=== PATIENT | male | born 1975 | race African-American/Black ===

== ENCOUNTER 2023-10-04 14:49 | Emergency (ER) | payer SELFPAY ==
[2023-10-04] MEDS ORDERED: ONDANSETRON 4 MG/2 ML VIAL ONE (15:12)
[2023-10-04 15:18] LABS: Absolute Basophils 0.1 K/uL (0-0.5); Absolute Eosinophils 0.1 K/uL (0-0.5); Absolute Lymphocytes (CBC) 2.3 K/uL (0.7-4.9); Absolute Monocytes 0.6 K/uL (0.1-1.3); Absolute Neutrophil 3.7 K/uL (1.8-8.0); Basophils % 0.8 % (0-1.3); Eosinophils % 1.2 % (0-4.4); Hematocrit 38.6 % (39.6-49.0); Hemoglobin 12.8 g/dL (13.6-17.9); Lymphocytes % 33.8 % (15.3-44.8); MCH 31.5 pg (27.0-35.0); MCHC 33.3 g/dL (32.0-36.0); MCV 94.6 fL (80-100); MPV 7.8 fL (7.6-11.3); Monocytes % 9.3 % (3.3-12.3); Neutrophils % 54.9 % (41.7-73.7); Nucleated Red Blood Cells % 0.1 % (0-0); Platelets 232 thou/uL (152-406); RBC Red Blood Cell Count 4.08 M/uL (4.33-5.43); Red Cell Distribution Width 14.6 % (12.1-15.2)
[2023-10-04 15:36] LABS: Albumin 2.9 g/dL (3.4-5.0); Albumin/Globulin Ratio 0.9 (1.1-1.8); Anion Gap 8.9 mEq/L (5.0-15.0); Bilirubin Total 0.3 mg/dL (0.2-1.0); Globulin 3.1 g/dL (2.3-3.5); Potassium 3.9 mEq/L (3.5-5.1)
--- NOTE | 2023-10-04 16:20 | RAD REPORT ---
EXAM DESCRIPTION: CT - Abdomen Pelvis Wo Contrast - 10/04/2023 4:00 pm CLINICAL HISTORY: Abdominal pain. ABD PAIN COMPARISON: <Comparisons> TECHNIQUE: CT imaging of the abdomen and pelvis was performed without contrast. Solid organ, bowel a nd vascular assessment is limited due to lack of IV and oral contrast. All CT scans are performed using dose optimization technique as appropriate and may include automated exposure control or mA/KV adjustment according to patient size. FINDINGS: The lower lung mccray are clear.Small hiatal hernia. The liver, spleen, pancreas, adrenal glands and kidneys are within normal limits for a limited non-co ntrast examination. No bowel obstruction, free air, free fluid or abscess. The appendix is normal. The osseous structures are within normal limits. IMPRESSION: No acute intra-abdominal or pelvic findings. A limited non-contrast examination was performed as detailed.
[2023-10-04 16:56] LABS: Specific Gravity 1.022 (1.005-1.030); Sqamous Epithelial None Seen /HPF (None Seen); Urine Bacteria None Seen /HPF (<20); Urine Bilirubin NEGATIVE (Negative); Urine Blood Negative (Negative); Urine Clarity Extremely Turbid (Clear); Urine Color Light-Yellow (Yellow); Urine Crystals Unidentified Few /HPF (None Seen); Urine Culture Reflex Order NOT NEEDED; Urine Glucose NEGATIVE (Negative); Urine Ketones NEGATIVE (Negative); Urine Micro Reflex YN NO BILL MICROSCOPIC; Urine Mucus Slight /HPF (None Seen); Urine Nitrite NEGATIVE (Negative); Urine Protein NEGATIVE (Negative); Urine RBC <5 /HPF (None Seen); Urine Urobilinogen Normal (Normal); Urine Yeast (Budding) Moderate /HPF (None Seen); Urine pH 7.5 (5.0-7.0)
--- NOTE | 2023-10-04 17:13 | EDPHYS ---
Physician Documentation [facility] Name: Annabel Casillas Age: 48 yrs Sex: Male : 1975 Arrival Date: 10/04/2023 Time: 14:49 Bed 19 Private MD: ED Physician Coy Silva HPI: 10/03 15:12 This 48 yrs old Male presents to ER via Unassigned with complaints of Bloody Stools, rt Vomiting - blood. 15:12 Patient presents to the ED with vomiting, diarrhea. Started yesterday. Patient had rt vomiting with small Pepper blood streaking in it. Patient reports a red-colored stool. Reports abdominal cramping. Denies other acute complaints at this time, symptoms are moderate in severity, no other aggravating or alleviating factors.. Historical: - Allergies: 16:10 Tylenol; me1 - PMHx: 16:10 None; me1 - PSHx: 16:10 right hand surgery; me1 - Immunization history:: Adult Immunizations up to date. - Infectious Disease History:: Denies. - Family history:: not pertinent. - Social history:: Smoking status: Patient reports the use of cigarette tobacco products, denies chronic smoking, but will smoke occasionally. ROS: 15:15 Constitutional: Negative for fever, chills, and weight loss, Cardiovascular: Negative rt for chest pain, palpitations, and edema, Respiratory: Negative for shortness of breath, cough, wheezing, and pleuritic chest pain, MS/Extremity: Negative for injury and deformity, Skin: Negative for injury, rash, and discoloration, Neuro: Negative for headache, weakness, numbness, tingling, and seizure, 15:15 Abdomen/GI: Positive for nausea and vomiting, rectal bleeding, Exam: 15:15 Constitutional: This is a well developed, well nourished patient who is awake, alert, rt and in no acute distress. Head/Face: Normocephalic, atraumatic. Chest/axilla: Normal chest wall appearance and motion. Nontender with no deformity. No lesions are appreciated. Cardiovascular: Regular rate and rhythm with a normal S1 and S2. No gallops, murmurs, or rubs. Normal PMI, no JVD. No pulse deficits. Respiratory: Lungs have equal breath sounds bilaterally, clear to auscultation and percussion. No rales, rhonchi or wheezes noted. No increased work of breathing, no retractions or nasal flaring. Abdomen/GI: Soft, non-tender, with normal bowel sounds. No distension or tympany. No guarding or rebound. No evidence of tenderness throughout. Skin: Warm, dry with normal turgor. Normal color with no rashes, no lesions, and no evidence of cellulitis. MS/ Extremity: Pulses equal, no cyanosis. Neurovascular intact. Full, normal range of motion. Neuro: Awake and alert, GCS 15, oriented to person, place, time, and situation. Cranial nerves II-XII grossly intact. Motor strength 5/5 in all extremities. Sensory grossly intact. Cerebellar exam normal. Normal gait. Vital Signs: 16:00 BP 136 / 87; Pulse 79; Resp 16; Pulse Ox 100% on R/A; me1 16:11 BP 156 / 84; Pulse 91; Resp 16; Temp 98.1; Pulse Ox 97% ; Weight 137.89 kg; Height 6 me1 ft. 7 in. ; Pain 4/10; 17:04 BP 140 / 97; Pulse 80; Resp 16; Pulse Ox 99% ; me1 16:11 Body Mass Index 34.25 (137.89 kg, 200.66 cm) me1 16:11 Pain Scale: Adult me1 MDM: 14:56 Patient medically screened. rt 20:05 Differential diagnosis: Colitis, diverticulitis, hemorrhoidal bleed. Data reviewed: rt vital signs, nurses notes, lab test result(s), radiologic studies. Consideration of Admission/Observation Escalation of care including admission/observation considered. Stable H\T\H, stable vital signs, no indications for admission at this time, patient is desirous of discharge. Request COVID swab prior to leaving. Will treat empirically for colitis despite lack of CT findings. Stable for outpatient care, to follow-up with GI, return precautions discussed.. I considered the following discharge prescriptions or medication management in the emergency department Medications were administered in the Emergency Department. See MAR. Independent interpretation of the following test(s) in the Emergency Department CT Scan: My interpretation is No bowel obstructions, interpretation of CT scan images. Counseling: I had a detailed discussion with the patient and/or guardian regarding the historical points, exam findings, and any diagnostic results supporting the discharge/admit diagnosis, lab results, radiology results, the need for outpatient follow up, to return to the emergency department if symptoms worsen or persist or if there are any questions or concerns that arise at home. Response to treatment: the patient's symptoms have mildly improved after treatment. 10/03 15:01 Order name: CBC with Diff; Complete Time: 15:37 rt 10/03 15:01 Order name: CMP; Complete Time: 15:37 rt 10/03 15:01 Order name: Lipase; Complete Time: 15:37 rt 10/03 16:13 Order name: UAM; Complete Time: 16:58 rt 10/03 17:12 Order name: SARS RAPID; Complete Time: 20:06 rt 10/03 15:58 Order name: Abdomen ; Complete Time: 16:36 EDMS 10/03 15:01 Order name: IV Saline Lock; Complete Time: 15:11 rt 10/03 15:01 Order name: Labs collected and sent; Complete Time: 15:11 rt Administered Medications: 15:16 Drug: Ondansetron IVP 4 mg IVP once; over 2 minutes Route: IVP; Site: right antecubital;me1 15:16 Follow up: Response: No adverse reaction; Nausea is decreased me1 Disposition Summary: 10/04/23 17:13 Discharge Ordered Notes: Location: Home rt Problem: new rt Symptoms: have improved rt Condition: Stable rt Diagnosis - Rectal bleeding rt - Vomiting rt Followup: rt - With: Johny Cartagena MD - When: 5 - 6 days - Reason: Followup: rt - With: Roberto Carlos Ochoa MD - When: 5 - 6 days - Reason: Discharge Instructions: - Discharge Summary Sheet rt - Rectal Bleeding rt - Vomiting, Adult rt Forms: - Medication Reconciliation Form rt - Antibiotic Education rt - Prescription Opioid Use rt - Patient Portal Instructions rt - Leadership Thank You Letter rt Prescriptions: - ondansetron 4 mg Oral Tablet,disintegrating - take 1 tablet ORAL route every 6 hours as needed for nausea; 21 tablet; rt Refills: 0, Product Selection Permitted - Augmentin 875-125 mg Oral Tablet - take 1 tablet ORAL route every 12 hours for 10 days; 20 tablet; Refills: 0, rt Product Selection Permitted Signatures: Dispatcher [facility] Coy Jernigan MD MD rt Penny Sharma RN RN me1 Corrections: (The following items were deleted from the chart) 15:58 15:02 Abdomen Pelvis W Con+CT.RAD.BRZ ordered. EDMS EDMS
--- NOTE | 2023-10-04 17:13 | ER ---
Nurse's Notes [facility] Name: Annabel Casillas Age: 48 yrs Sex: Male : 1975 Arrival Date: 10/04/2023 Time: 14:49 Bed 19 Private MD: Diagnosis: Rectal bleeding;Vomiting Presentation: 10/03 16:11 Chief complaint: Patient states: n/v/d that started yesterday with abdominal cramping. me1 Noted some blood in stool. Coronavirus screen: Vaccine status: Patient reports being unvaccinated. Ebola Screen: No symptoms or risks identified at this time. Initial Sepsis Screen: Does the patient meet any 2 criteria? No. Patient's initial sepsis screen is negative. Does the patient have a suspected source of infection? No. Patient's initial sepsis screen is negative. Risk Assessment: Do you want to hurt yourself or someone else? Patient reports no desire to harm self or others. Onset of symptoms was October 03, 2023. 16:11 Method Of Arrival: Ambulatory mt1 16:11 Acuity: OMAR 3 me1 Historical: - Allergies: 16:10 Tylenol; me1 - PMHx: 16:10 None; me1 - PSHx: 16:10 right hand surgery; me1 - Immunization history:: Adult Immunizations up to date. - Infectious Disease History:: Denies. - Family history:: not pertinent. - Social history:: Smoking status: Patient reports the use of cigarette tobacco products, denies chronic smoking, but will smoke occasionally. Screenin:00 [facility] ED Fall Risk Assessment (Adult) History of falling in the last 3 months, me1 including since admission No falls in past 3 months (0 pts) Confusion or Disorientation No (0 pts) Intoxicated or Sedated No (0 pts) Impaired Gait No (0 pts) Mobility Assist Device Used No (0 pt) Altered Elimination No (0 pt) Score/Fall Risk Level 0 - 2 = Low Risk Maintained a safe environment, Provided non-skid footwear, Hourly rounding (assess needs \T\ fall precautionary measures) done. Abuse screen: Denies threats or abuse. Nutritional screening: No deficits noted. Tuberculosis screening: No symptoms or risk factors identified. Assessment: 15:00 General: Appears uncomfortable, well groomed, well developed, well nourished, Behavior me1 is calm, cooperative, appropriate for age, Reports n/v/d since yesterday. Reports a small amt of blood noted in stool. c/o abdominal cramping. Pain: Complains of pain in abdomen Pain does not radiate. Pain currently is 5 out of 10 on a pain scale. Quality of pain is described as crampy, Pain began 1 day ago. Is continuous. Neuro: Level of Consciousness is awake, alert, obeys commands, Oriented to person, place, time, situation, Appropriate for age. Cardiovascular: Patient's skin is warm and dry. Respiratory: Airway is patent Respiratory effort is even, unlabored, Respiratory pattern is regular, symmetrical. GI: Reports cramping, diarrhea, nausea, vomiting. GI: Reports bloody stool. : No signs and/or symptoms were reported regarding the genitourinary system. EENT: No signs and/or symptoms were reported regarding the EENT system. Derm: Skin is intact, is healthy with good turgor, Skin is pink, warm \T\ dry. Musculoskeletal: No signs and/or symptoms reported regarding the musculoskeletal system. Vital Signs: 16:00 BP 136 / 87; Pulse 79; Resp 16; Pulse Ox 100% on R/A; me1 16:11 BP 156 / 84; Pulse 91; Resp 16; Temp 98.1; Pulse Ox 97% ; Weight 137.89 kg; Height 6 me1 ft. 7 in. ; Pain 4/10; 17:04 BP 140 / 97; Pulse 80; Resp 16; Pulse Ox 99% ; me1 16:11 Body Mass Index 34.25 (137.89 kg, 200.66 cm) me1 16:11 Pain Scale: Adult [facility] ED Course: 14:53 Patient arrived in ED. eb 14:55 Coy Silva MD is Attending Physician. rt 15:00 No provider procedures requiring assistance completed. me1 15:00 Patient has correct armband on for positive identification. Bed in low position. Call [facility] light in reach. Side rails up X2. Provided Education on: POC. Verbalized understanding. . Client placed on continuous cardiac and pulse oximetry monitoring. NIBP monitoring applied. Pulse ox on. NIBP on. 15:04 Penny Sharma RN is Primary Nurse. me1 15:11 CBC with Diff Sent. me1 15:12 CMP Sent. me1 15:12 Lipase Sent. me1 15:12 Initial lab(s) drawn, by me, sent to lab. Inserted saline lock: 20 gauge in right me1 antecubital area, using aseptic technique. 16:03 Abdomen In Process Unspecified. EDMS 16:11 Arm band placed on Patient placed. me1 16:12 Triage completed. me1 16:45 UAM Sent. me1 16:45 Urine collected: clean catch specimen, cloudy. me1 17:12 Johny Cartagena MD is Referral Physician. rt 17:12 Roberto Carlos Ochoa MD is Referral Physician. rt 17:18 SARS RAPID Sent. me1 17:18 COVID swab sent to lab. me1 17:21 IV discontinued, intact, bleeding controlled, No redness/swelling at site. Pressure me1 dressing applied. Administered Medications: 15:16 Drug: Ondansetron IVP 4 mg IVP once; over 2 minutes Route: IVP; Site: right antecubital;me1 15:16 Follow up: Response: No adverse reaction; Nausea is decreased me1 Medication: 15:00 VIS not applicable for this client. me1 Outcome: 17:13 Discharge ordered by MD. rt 17:21 Discharged to home ambulatory, me1 17:21 Condition: stable 17:21 Discharge instructions given to patient, Instructed on discharge instructions, follow up and referral plans. medication usage, Demonstrated understanding of instructions, follow-up care, medications, Prescriptions given X 2, 17:22 Patient left the ED. me1 Signatures: Dispatcher [employer] EDOR Dominga Bell Ryan, MD MD rt Penny Sharma RN RN me1
[2023-10-04 17:33] LABS: SARS-CoV-2 Antigen CONTROL BLUE LINE VIS/BG OK; SARS-CoV-2 Antigen Rapid Res Negative (Negative)
[2023-10-04 18:59] VITALS: TEMP 98.1
[2023-10-04 19:08] VITALS: BP 140/97; O2SAT 99
== END 2023-10-04 17:22 | disposition home or self-care (01) ==
LOC: ER 14:49
DX: K62.5 Hemorrhage of anus and rectum (principal); R11.10 Vomiting, unspecified
CPT/HCPCS: 36415; 74176; 80053; 81001; 83690; 85025; 87811; 96374; 99284; J2405

== ENCOUNTER 2024-01-09 11:50 | Emergency (ER) | payer OTHER ==
--- OUTSIDE RECORDS SUMMARY | 2024-01-09 11:53 | XMS REPORT | Continuity of Care Document ---
Author Name Unknown Address [address] [place] [address] [facility] thconnect Address 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 Name Role Phone [facility] [place] DEPT OF Primary Care Physician LICO Levy Attending Clinician Unavailable LICO SMART Attending Clinician Unavailable Bird Carnes MD Attending Clinician [phone] Therapy, [facility] Occupational Attending Clinician Un Simon Ledezma MD Attending Clinician [phone] Doctor Unassigned, [place] Attending Clinician U Bianca Balderrama MD Attending Clinician [phone] Ajay Guerrero MD Attending Clinician [phone] Keely Dominique MD Attending Clinician [phone] Therapy, [facility] Physical Attending Clinician Bird Schultz MD Admitting Clinician [phone] Payers Payer Name Policy Type Policy Number Effective Date Expirati on Date Source Problems Condition Name Condition Details Condition Category Status Onset Date Resolution Date Last Treatment Date Treating Clinician Comments Source Pain Pain Disease Active 11-23 00:00: 00 Overview: Formattin g of this note might be different from the original. Added automatic ally from request for surgery [id number] [facility] Arthritis Arthritis Disease Active 11-23 00:00: 00 Overview: Formattin g of this note might be different from the original. 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 Added automatic ally from request for surgery [id number] [facility] Chronic pain of left knee Chronic pain of left knee Disease Active 11-22 00:00: 00 [facility] Obesity (BMI 30-39.9) Obesity (BMI 30-39.9) Disease Active 10-11 00:00: 00 [facility] Scarring Scarring Disease Active 07-30 00:00: 00 [facility] Weakness of right hand Weakness of right hand Disease Active 07-30 00:00: 00 [facility] Right wrist pain Right wrist pain Disease Active 07-30 00:00: 00 [facility] Edema of hand Edema of hand Disease Active 07-30 00:00: 00 [facility] Allergies, Adverse Reactions, Alerts Allergy Name Allergy Type Status Severity Reaction(s) Onset Date Inactive Date Treating Clinician Comments Source ACETAMIN OPHEN DRUG INGREDI Active High Rash 09-08 00:00: 00 [facility] Acetamin ophen Propensi ty to adverse reaction s Active Rash 09-08 00:00: 00 [facility] NSAIDS (NON-VALENTINO ROIDAL ANTI-INF LAMMATOR Y DRUG) Drug Class Active ITCHING 2014-03 00:00: 00 [facility] Nsaids (Non-Valentino roidal Anti-Inf lammator y Drug) Propensi ty to adverse reaction s Active Rash 2014-03 00:00: 00 Patient states not allergic to all NSAIDS just ibuprofen . Pt received ketorolac last surgery without any problems [facility] Social History Social Habit Start Date Stop Date Quantity Comments Source Exposure to SARS-CoV-2 (event) 2021-12-22 00:00:00 2022-01-01 11:07:00 Not sure [facility] Alcohol intake 2022-01-01 00:00:00 2022-01-01 00:00:00 0 /d [facility] Cigarettes smoked current (pack per day) - Reported 2021-09-11 00:00:00 2021-09-11 00:00:00 [facility] Tobacco use and exposure 2021-09-11 00:00:00 2021-09-11 00:00:00 Former smokeless tobacco user [facility] History of tobacco use 2014-01-10 00:00:00 Chews Tobacco [facility] Sex Ass[birth year] At 1975 00:00:00 1975 00:00:00 [facility] Smoking Status Start Date Stop Date Source Ex-smoker 2021-09-11 00:00:00 2021-09-11 00:00:00 U [facility] Medications Ordered Medication Name Filled Medication Name Start Date Stop Date Current Medication? Ordering Clinician Indication Dosage Frequency Signature (SIG) Comments Components Source No known medications 2021-03 11:20: 39 No No known medication s [facility] acetaminoph en-codeine (TYLENOL #3) 300-30 mg tablet 1 tablet 2021-03 01:31: 02 Yes 1{tbl} 1 tablet, Oral, Q6HPRN, Starting on Mercedes 12/13/21 at 2030, Until Discontinu ed, Routine, Pain (scale 1-3) [facility] ondansetron (ZOFRAN (PF)) injection 8 mg 2021-03 01:30: 00 12-14 01:30 :00 No 8mg 8 mg, Slow IV Push, ONCE, On Mercedes 12/13/21 at 2030, For 1 dose, PACU
Do ses of ondansetro n 16 mg and above need to be administer ed via IV piggyback. For Dose >=24mg ECG monitoring is advisable.
[facility] proMETHazin e (PHENERGAN) 25 mg in NS 50 mL IV piggyback (CNR) 2021-03 00:44: 54 Yes 25mg 25 mg, IV Piggyback, at 200 mL/hr Administer over 15 Minutes, PRN - SEE INSTRUCTIO NS, 1 dose, Starting on Mercedes 12/13/21 at 1944, Until Discontinu ed, Routine, N/V unresponsi ve to Ondansetro n, PACU [facility] lactated ringers IV infusion 500 mL 2021-03 23:45: 00 Yes 500mL at 75 mL/hr, 500 mL, IV Infusion, CONTINUOUS , Starting on Mercedes 12/13/21 at 1845, Until Discontinu ed, Routine, PACU [facility] HYDROmorphO ne (DILAUDID) injection 0.2 mg 2021-03 23:31: 16 Yes .2mg 0.2 mg, Slow IV Push, Q5MIN PRN, 10 doses, Starting on Mercedes 12/13/21 at 1831, Until Discontinu ed, Routine, Pain (scale 7-10), PACU
Us e approved by (Faculty): PACU USE -ANESTHESI A SERVICE-HY DROMORPHON E INJECTIONS [facility] FENTanyl PF (SUBLIMAZE (PF)) injection 25 mcg 2021-03 23:31: 16 Yes 25ug 25 mcg, Slow IV Push, Q5MIN PRN, 4 doses, Starting on Mercedes 12/13/21 at 1831, Until Discontinu ed, Routine, Pain (scale 4-6), PACU [facility] proMETHazin e (PHENERGAN) 12.5 mg in NS 50 mL IV piggyback (CNR) 2021-03 23:31: 16 Yes 12.5mg 12.5 mg, IV Piggyback, at 200 mL/hr Administer over 15 Minutes, PRN, 1 dose, Starting on Mercedes 12/13/21 at 1831, Until Discontinu ed, Routine, Nausea and Vomiting (N/V), PACU [facility] dexmedeTOMI Dine (PRECEDEX) injection 2021-03 22:58: 00 12-13 23:50 :03 No Intravenou s, ONCE INTRA PROCEDURE, Starting on Mercedes 12/13/21 at 1758, Until Mercedes 12/13/21 at 1850, Routine, Intra-op [facility] HYDROmorphO ne (DILAUDID) injection 2021-03 22:16: 00 12-13 23:50 :03 No Slow IV Push, ONCE INTRA PROCEDURE, Starting on Mercedes 12/13/21 at 1716, Until Mercedes 12/13/21 at 1850, Routine, Intra-op [facility] ePHEDrine 25 mg/5 mL (5 mg/mL) syringe 2021-03 21:59: 00 12-13 23:50 :03 No Slow IV Push, ONCE INTRA PROCEDURE, Starting on Mercedes 12/13/21 at 1659, Until Mercedes 12/13/21 at 1850, Routine, Intra-op [facility] phenylephri ne (VAZCULEP) injection 2021-03 21:56: 00 12-13 23:50 :03 No Slow IV Push, ONCE INTRA PROCEDURE, Starting on Mercedes 12/13/21 at 1656, Until Mercedes 12/13/21 at 1850, Routine, [facility] dexamethaso [facility] (DECADRON PHOSPHATE) injection 2021-03 21:55: 00 12-13 23:50 :03 No IV Push, ONCE INTRA PROCEDURE, Starting on Mercedes 12/13/21 at 1655, Until Mercedes 12/13/21 at 1850, Routine, Intra-op [facility] vancomycin (VANCOCIN) injection 2021-03 21:55: 00 12-13 23:50 :03 No IV Piggyback, ONCE INTRA PROCEDURE, Starting on Mercedes 12/13/21 at 1655, Until Mercedes 12/13/21 at 1850, MARJORIE, Intra-op [facility] ceFAZolin (ANCEF) injection 2021-03 21:50: 00 12-13 23:50 :03 No Slow IV Push, ONCE INTRA PROCEDURE, Starting on Mercedes 12/13/21 at 1650, Until Mercedes 12/13/21 at 1850, MARJORIE, Intra-op [facility] FENTanyl PF (SUBLIMAZE (PF)) injection 2021-03 21:45: 00 12-13 23:50 :03 No Intravenou s, ONCE INTRA PROCEDURE, Starting on Mercedes 12/13/21 at 1645, Until Mercedes 12/13/21 at 1850, Routine, [facility] propofoL [facility] infusion 2021-03 21:36: 00 12-13 23:50 :03 No IV Infusion, ONCE INTRA PROCEDURE, Starting on Mercedes 12/13/21 at 1636, Until Mercedes 12/13/21 at 1850, Routine, Intra-op [facility] lidocaine 1% (XYLOCAINE) 100 mg/10 mL (1 %) injection 2021-03 21:35: 00 12-13 23:50 :03 No Slow IV Push, ONCE INTRA PROCEDURE, Starting on Mercedes 12/13/21 at 1635, Until Mercedes 12/13/21 at 1850, Routine, Intra-op [facility] midazolam (VERSED) injection 2021-03 21:34: 00 12-13 23:50 :03 No IV Push, ONCE INTRA PROCEDURE, Starting on Mercedes 12/13/21 at 1634, Until Mercedes 12/13/21 at 1850, Routine, Intra-op [facility] lactated ringers IV infusion 2021-03 21:26: 00 12-13 23:50 :03 No IV Infusion, CONTINUOUS PRN, Starting on Mercedes 12/13/21 at 1626, Until Mercedes 12/13/21 at 1850, Routine, Intra-op [facility] lactated ringers IV infusion 1,000 mL 2021-03 19:00: 00 Yes 1000mL at 42 mL/hr, 1,000 mL, IV Infusion, CONTINUOUS , Starting on Mercedes 12/13/21 at 1400, Until Discontinu ed, Routine, PACU [facility] No known medications 2021-03 13:50: 01 No No known medication s [facility] ibuprofen 800 mg tablet 2021-03 00:00: 00 12-15 00:00 :00 No [id number] 800mg Take 1 tablet by mouth in the morning and 1 tablet at noon and 1 tablet in the evening. Take with meals. Do all this for 30 days. [facility] acetaminoph en-codeine 300-30 mg tablet 2021-03 013 00:00: 00 12-15 00:00 :00 No [id number] 1{tbl} Take 1 tablet by mouth every 6 (six) hours as needed for Pain (scale 4-6) or Pain (scale 7-10) for up to 15 doses. Indication s: acute pain [facility] No known medications 11-20 11:03: 11 No No known medication s [facility] No known medications 11-12 14:06: 34 No No known medication s [facility] Vital Signs Vital Name Observation Time Observation Value Comments S gail Body height 2022-01-01 16:08:00 200.7 cm [facility] Body weight 2022-01-01 16:08:00 148.78 kg [facility] BMI 2022-01-01 16:08:00 36.95 kg/m2 [facility] Systolic blood pressure 2021-12-14 01:00:00 120 mm[Hg] [facility] Diastolic blood pressure 2021-12-14 01:00:00 66 mm[Hg] [facility] Heart rate 2021-12-14 01:00:00 78 /min [facility] Body temperature 2021-12-14 01:00:00 36.39 Cami [facility] Respiratory rate 2021-12-14 01:00:00 18 /min [facility] Oxygen saturation in Arterial blood by Pulse oximetry 2021-12-14 01:00:00 97 /min [facility] Body height 2021-11-20 14:06:00 200.7 cm [facility] Body weight 2021-11-20 14:06:00 150.594 kg [facility] BMI 2021-11-20 14:06:00 37.40 kg/m2 [facility] Body height 2021-11-12 15:55:00 200.7 cm [facility] Body weight 2021-11-12 15:55:00 151.501 kg [facility] BMI 2021-11-12 15:55:00 37.63 kg/m2 [facility] Procedures Procedure Date / Time Performed Performing Clinician Source EXTERNAL PROVIDER RECORDS 2021-12-19 05:01:00 Do ctor Unassigned, [place] [facility] TIME OR (NON-REPORTABLE) 2021-12-13 23:35:00 Elieser Vu [facility] [place] TIME OR (NON-REPORTABLE) 2021-12-13 23:35:00 Elieser Vu [facility] INTUBATION 2021-12-13 22:21:00 Arun Sanchez [facility] TENOLYSIS 2021-12-13 21:12:00 Bird Carnes [facility] NERVE BLOCK 2021-12-13 18:06:53 Antony Cavazos [facility] COVID-19 (ID NOW RAPID TESTING) 2021-12-12 20:07:00 Luis [facility] LAB ONLY COVID INTERPRETATION 2021-12-12 20:07:00 Roman Smith [facility] COVID-19 (ID NOW RAPID TESTING) 2021-12-12 20:07:00 Roman Smith [facility] LAB ONLY COVID INTERPRETATION 2021-12-12 20:07:00 Roman Smith [facility] XR WRIST 3+ VW RIGHT 2021-11-20 14:15:00 Joe Carnes [facility] Encounters Start Date/Time End Date/Time Encounter Type Admission Type Attending Clinicians Care Facility Care Department Encounter ID Source 2023-11-18 08:00:00 2023-11-18 08:00:00 Outpatient LICO CURRY SELENA [facility] [id number] [facility] 2022-04-09 08:00:00 2022-04-10 01:42:00 Hospital Encounter Bidr Carnes [facility] [id number] 350.1.13.10 4.2.7.2.686 [id number] [facility] 2022-01-01 08:00:00 2022-01-02 03:57:00 Hospital Encounter Deyvi [facility] [id number] 350.1.13.10 4.2.7.2.686 [id number] [facility] 2022-01-01 10:56:14 2022-01-01 23:59:00 [facility] [id number] 350.1.13.10 4.2.7.2.686 [id number] [facility] 2022-01-01 16:30:00 2022-01-01 16:45:00 [facility] 1.2.840.114 350.1.13.10 4.2.7.2.686 [id number] [facility] 2022-01-01 10:00:00 2022-01-01 12:55:11 [facility] [id number] 350.1.13.10 4.2.7.2.686 [id number] [facility] 2021-12-19 00:00:00 2021-12-19 00:00:00 Orders Only Doctor Unassigned, [place] [facility] 1.2.840.114 350.1.13.10 4.2.7.2.686 [id number] [facility] 2021-12-13 21:52:00 2021-12-15 00:06:00 [facility] 1.2.840.114 350.1.13.10 4.2.7.2.686 [id number] [facility] 2021-12-12 08:00:00 2021-12-13 21:51:00 Hospital Encounter [facility] 1.2.840.114 350.1.13.10 4.2.7.2.686 [id number] [facility] 2021-12-13 16:27:00 2021-12-13 18:44:00 Anesthesia Event Bianca Nolan, Ajay [facility] 1.2.840.114 350.1.13.10 4.2.7.2.686 [id number] [facility] 2021-12-13 13:19:00 2021-12-13 16:14:00 Surgery [facility] 1.2.840.114 350.1.13.10 4.2.7.2.686 [id number] [facility] 2021-11-20 08:05:53 2021-11-20 23:59:00 Hospital Encounter [facility] 1.2.840.114 350.1.13.10 4.2.7.2.686 [id number] [facility] 2021-11-20 16:30:00 2021-11-20 16:45:00 [facility] 1.2.840.114 350.1.13.10 4.2.7.2.686 [id number] [facility] 2021-11-20 10:00:00 2021-11-20 12:22:04 Office Visit [facility] 1.2.840.114 350.1.13.10 4.2.7.2.686 [id number] [facility] 2021-11-12 10:37:27 2021-11-12 23:59:00 Hospital Encounter Keely Dominique [facility] 1.2.840.114 350.1.13.10 4.2.7.2.686 [id number] [facility] 2021-11-12 16:30:00 2021-11-12 16:45:00 Ancillary Visit Therapy, Td Simon Capone [facility] 1.2.840.114 350.1.13.10 4.2.7.2.686 [id number] [facility] 2021-11-12 08:00:00 2021-11-12 14:14:46 Office Visit Keely Dominique [facility] 1.2.840.114 350.1.13.10 4.2.7.2.686 [id number] [facility] 2021-10-25 00:00:00 2021-10-25 00:00:00 Orders Only Doctor Unassigned, [place] [facility] 1.2.840.114 350.1.13.10 4.2.7.2.686 [id number] [facility] 2021-10-10 08:00:00 2021-10-11 17:50:00 Hospital Encounter Bird Carnes [facility] 1.2.840.114 350.1.13.10 4.2.7.2.686 [id number] [facility] 2021-10-11 10:59:00 2021-10-11 12:27:00 Surgery Deyvi [facility] 1.2.840.114 350.1.13.10 4.2.7.2.686 [id number] [facility] 2021-10-10 00:00:00 2021-10-10 00:00:00 Outpatient [facility] [id number] [facility]
--- NOTE | 2024-01-09 13:53 | RAD REPORT ---
EXAM:Ankle Right 3 View CLINICAL HISTORY: Ankle pain FINDINGS: No fracture or dislocation seen. No significant bone or joint abnormality noted
--- NOTE | 2024-01-09 13:54 | RAD REPORT ---
Exam:Foot Right 3 View CLINICAL HISTORY: Right foot pain FINDINGS: No fracture or dislocation seen. Hallux valgus deformity. Mild arthritis first IP joint.
--- NOTE | 2024-01-09 14:14 | EDPHYS ---
Physician Documentation [facility] Name: Annabel Casillas Age: 48 yrs Sex: Male : 1975 Arrival Date: 01/09/2024 Time: 11:50 Bed 13 Private MD: ED Physician Donaldo Anders HPI: 01/08 12:07 This 48 yrs old Black Male presents to ER via Ambulatory with complaints of Ankle ms3 Injury. 12:07 48-year-old male presents to the emergency department experiencing right ankle pain ms3 that began on Friday after stepping into a crack and twisting the right ankle at work. The incident resulted in immediate pain, and the patient attempted to continue working but was sent home the following day. The pain is localized near the lateral malleolus and extends slightly down the top of the foot. . Historical: - Allergies: 11:58 Tylenol; iw - Home Meds: 11:58 None [Active]; iw - PMHx: 11:58 None; iw - PSHx: 11:58 right hand surgery; iw - Immunization history:: Adult Immunizations not up to date. - Infectious Disease History:: Denies. - Social history:: Smoking status: Patient reports the use of cigarette tobacco products. ROS: 12:07 Constitutional: Negative for fever, and chills. Cardiovascular: Negative for chest ms3 pain, and palpitations. Respiratory: Negative for shortness of breath, cough, wheezing, and pleuritic chest pain, Abdomen/GI: Negative for abdominal pain, nausea, vomiting, diarrhea, and constipation, 12:07 MS/extremity: Positive for Right ankle pain, Exam: 12:07 Constitutional: This is a well developed, well nourished patient who is awake, alert, ms3 and in no acute distress. Chest/axilla: Normal chest wall appearance and motion. Nontender with no deformity. Cardiovascular: Regular rate and rhythm with a normal S1 and S2. No gallops, murmurs, or rubs. Normal PMI, no JVD. No pulse deficits. Respiratory: Lungs have equal breath sounds bilaterally, clear to auscultation and percussion. No rales, rhonchi or wheezes noted. No increased work of breathing, no retractions or nasal flaring. Abdomen/GI: Soft, non-tender, with normal bowel sounds. No distension or tympany. No guarding or rebound. No evidence of tenderness throughout. 12:07 Musculoskeletal/extremity: Extremities: noted in the Right ankle: pain, tenderness, There is no evidence of ecchymosis, swelling, Vital Signs: 11:56 BP 108 / 71; Pulse 84; Resp 16; Temp 98.1; Pulse Ox 100% on R/A; Weight 139.25 kg; iw Height 6 ft. 7 in. ; Pain 3/10; 11:56 Body Mass Index 34.58 (139.25 kg, 200.66 cm) iw 11:56 Pain Scale: Adult iw MDM: 12:07 Differential diagnosis: fracture, sprain. ms3 12:23 Medical Screening Exam initiated ms3 15:02 Data reviewed: vital signs, nurses notes, radiologic studies, and as a result, I will ms3 discharge patient. Counseling: I had a detailed discussion with the patient and/or guardian regarding the historical points, exam findings, and any diagnostic results supporting the discharge/admit diagnosis, radiology results, the need for outpatient follow up, to return to the emergency department if symptoms worsen or persist or if there are any questions or concerns that arise at home. ED course: Discussed x-ray of right foot and ankle with the patient. Patient ambulatory in the emergency department without crutches or assistance. Patient requested return to work paperwork to be signed. Paperwork was signed. Patient to follow-up with podiatry in 2 to 3 days. Patient understands agrees with plan. All questions were answered. Return precautions discussed include worsening symptoms, or any other concerns.. 01/08 12:23 Order name: Ankle Right 3 View XRAY; Complete Time: 13:56 ms3 01/08 12:23 Order name: Foot Right 3 View XRAY; Complete Time: 13:56 ms3 Administered Medications: No medications were administered Disposition Summary: 01/09/24 14:14 Discharge Ordered Notes: Location: Home ms3 Condition: Stable ms3 Diagnosis - Pain in right foot ms3 - Pain in right ankle and joints of right foot ms3 Followup: ms3 - With: Nathen Tucker DPM - When: 2 - 3 days - Reason: Recheck today's complaints Discharge Instructions: - Discharge Summary Sheet ms3 - Musculoskeletal Pain ms3 - Foot Pain ms3 Forms: - Medication Reconciliation Form ms3 - Antibiotic Education ms3 - Prescription Opioid Use ms3 - Patient Portal Instructions ms3 - Leadership Thank You Letter ms3 - Work release form db Signatures: Dispatcher [employer] Rosalva Pascual, BELLA RN Donaldo Berrios DO DO ms3
--- NOTE | 2024-01-09 14:14 | ER ---
Nurse's Notes [facility] Name: Annabel Casillas Age: 48 yrs Sex: Male : 1975 Arrival Date: 01/09/2024 Time: 11:50 Bed 13 Private MD: Diagnosis: Pain in right foot;Pain in right ankle and joints of right foot Presentation: 01/08 11:56 Chief complaint: Patient states: twisted my right ankle a couple days ago , was in long-term iw and he just got out and wants to make sure there's nothing wrong with it. Coronavirus screen: At this time, the client does not indicate any symptoms associated with coronavirus-19. Risk Assessment: Do you want to hurt yourself or someone else? Patient reports no desire to harm self or others. 11:56 Method Of Arrival: Ambulatory iw 11:56 Acuity: OMAR 4 iw 11:59 Ebola Screen: No symptoms or risks identified at this time. Initial Sepsis Screen: Does iw the patient meet any 2 criteria? No. Patient's initial sepsis screen is negative. Does the patient have a suspected source of infection? No. Patient's initial sepsis screen is negative. Onset of symptoms was January 07, 2024. Historical: - Allergies: 11:58 Tylenol; iw - Home Meds: 11:58 None [Active]; iw - PMHx: 11:58 None; iw - PSHx: 11:58 right hand surgery; iw - Immunization history:: Adult Immunizations not up to date. - Infectious Disease History:: Denies. - Social history:: Smoking status: Patient reports the use of cigarette tobacco products. Screenin:38 [facility] ED Fall Risk Assessment (Adult) History of falling in the last 3 months, db including since admission Yes- single mechanical fall (1 pt) Confusion or Disorientation No (0 pts) Intoxicated or Sedated No (0 pts) Impaired Gait No (0 pts) Mobility Assist Device Used No (0 pt) Altered Elimination No (0 pt) Score/Fall Risk Level 0 - 2 = Low Risk Oriented to surroundings, Maintained a safe environment. Abuse screen: Denies threats or abuse. Denies injuries from another. Nutritional screening: No deficits noted. Tuberculosis screening: No symptoms or risk factors identified. Assessment: 14:37 Reassessment: Patient appears in no apparent distress at this time. Patient and/or db family updated on plan of care and expected duration. Pain level reassessed. Patient is alert, oriented x 3, equal unlabored respirations, skin warm/dry/pink. General: Appears in no apparent distress. comfortable, Behavior is calm, cooperative. 14:38 Pain: Complains of pain in right foot and right leg. Musculoskeletal: Range of motion: db limited in right ankle. Vital Signs: 11:56 BP 108 / 71; Pulse 84; Resp 16; Temp 98.1; Pulse Ox 100% on R/A; Weight 139.25 kg; iw Height 6 ft. 7 in. ; Pain 3/10; 11:56 Body Mass Index 34.58 (139.25 kg, 200.66 cm) iw 11:56 Pain Scale: Adult iw ED Course: 11:55 Patient arrived in ED. sj2 11:58 Triage completed. iw 11:58 Arm band placed on. iw 12:00 Donaldo Anders DO is Attending Physician. ms3 13:42 Ankle Right 3 View XRAY In Process Unspecified. EDMS 13:42 Foot Right 3 View XRAY In Process Unspecified. EDMS 14:14 Nathen Tuckre DPM is Referral Physician. ms3 14:38 Patient has correct armband on for positive identification. Bed in low position. Call db light in reach. Side rails up X 1. Provided Education on: DISCHARGE AND FOLLOWUP . Pillow given. 14:38 No provider procedures requiring assistance completed. Patient did not have IV access db during this emergency room visit. Administered Medications: No medications were administered Medication: 14:38 VIS not applicable for this client. db Outcome: 14:14 Discharge ordered by . ms3 14:34 Patient left the ED. aa5 14:38 Discharged to home ambulatory, db 14:38 Condition: stable 14:38 Discharge instructions given to patient, Instructed on discharge instructions, follow up and referral plans. Signatures: Dispatcher [employer] EDMS Rosalva Johnson RN RN iw Roxanna Flynn RN RN aa5 Donaldo Anders DO DO ms3 Devika Worrell RN RN db Myke Morse sj2 Corrections: (The following items were deleted from the chart) 14:38 14:37 Reassessment: Patient appears in no apparent distress at this time. Patient db and/or family updated on plan of care and expected duration. Pain level reassessed. Patient is alert, oriented x 3, equal unlabored respirations, skin warm/dry/pink. db
[2024-01-09 14:40] VITALS: BP 108/71; TEMP 98.1; O2SAT 100
== END 2024-01-09 14:34 | disposition home or self-care (01) ==
LOC: ER 11:50
DX: M25.571 Pain in right ankle and joints of right foot (principal)
CPT/HCPCS: 99282

== ENCOUNTER 2024-02-05 14:50 | Emergency (ER) | payer OTHER ==
--- OUTSIDE RECORDS SUMMARY | 2024-02-05 14:54 | XMS REPORT | Continuity of Care Document ---
Author Name Unknown Address 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 Role Phone [facility] DEPT OF Primary Care Physician LICO Levy Attending Clinician Unavailable LICO SMART Attending Clinician Unavailable Bird Carnes MD Attending Clinician [phone] Therapy, [facility] Occupational Attending Clinician Un Simon Ledezma MD Attending Clinician [phone] Doctor Unassigned, [place] Attending Clinician U Bianca Balderrama MD Attending Clinician [phone] Yolanda ASHER, Ajay Maria Attending Clinician Keely Dominique MD Attending Clinician Therapy, [facility] Physical Attending Clinician Lesly Carnes MD, Bird Admitting Clinician [phone] Payers Payer Name Policy Type Policy Number Effective Date Expirati on Date Source Problems Condition Name Condition Details Condition Category Status Onset Date Resolution Date Last Treatment Date Treating Clinician Comments Source Pain Pain Disease Active 11-23 00:00: 00 Overview: Formattin g of this note might be different from the original. Added automatic ally from request for surgery [id number] [facility] Arthritis Arthritis Disease Active 11-23 00:00: 00 Overview: Formattin g of this note might be different from the original. 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 Added automatic ally from request for surgery [id number] [facility] Chronic pain of left knee Chronic pain of left knee Disease Active 11-22 00:00: 00 [facility] Obesity (BMI 30-39.9) Obesity (BMI 30-39.9) Disease Active 10-11 00:00: 00 [facility] Scarring Scarring Disease Active 07-30 00:00: 00 [facility] Weakness of right hand Weakness of right hand Disease Active 07-30 00:00: 00 [facility] Right wrist pain Right wrist pain Disease Active 07-30 00:00: 00 [facility] Edema of hand Edema of hand Disease Active 07-30 00:00: 00 [facility] Allergies, Adverse Reactions, Alerts Allergy Name Allergy Type Status Severity Reaction(s) Onset Date Inactive Date Treating Clinician Comments Source ACETAMIN OPHEN DRUG INGREDI Active High Rash 09-08 00:00: 00 [facility] Acetamin ophen Propensi ty to adverse reaction s Active Rash 09-08 00:00: 00 [facility] NSAIDS (NON-VALENTINO ROIDAL ANTI-INF LAMMATOR Y DRUG) Drug Class Active ITCHING 2014-03 00:00: 00 [facility] Nsaids (Non-Valentino roidal Anti-Inf lammator y Drug) Propensi ty to adverse reaction s Active Rash 2014-03 00:00: 00 Patient states not allergic to all NSAIDS just ibuprofen . Pt received ketorolac last surgery without any problems [facility] Social History Social Habit Start Date Stop Date Quantity Comments Source Exposure to SARS-CoV-2 (event) 2021-12-22 00:00:00 2022-01-01 11:07:00 Not sure [facility] Alcohol intake 2022-01-01 00:00:00 2022-01-01 00:00:00 0 /d [facility] Cigarettes smoked current (pack per day) - Reported 2021-09-11 00:00:00 2021-09-11 00:00:00 [facility] Tobacco use and exposure 2021-09-11 00:00:00 2021-09-11 00:00:00 Former smokeless tobacco user [facility] History of tobacco use 2014-01-10 00:00:00 Chews Tobacco [facility] Sex Ass[birth year] At 1975 00:00:00 1975 00:00:00 [facility] Smoking Status Start Date Stop Date Source Ex-smoker 2021-09-11 00:00:00 2021-09-11 00:00:00 U [facility] Medications Ordered Medication Name Filled Medication Name Start Date Stop Date Current Medication? Ordering Clinician Indication Dosage Frequency Signature (SIG) Comments Components Source No known medications 2021-03 11:20: 39 No No known medication s [facility] acetaminoph en-codeine (TYLENOL #3) 300-30 mg tablet 1 tablet 2021-03 01:31: 02 Yes 1{tbl} 1 tablet, Oral, Q6HPRN, Starting on Mercedes 12/13/21 at 2030, Until Discontinu ed, Routine, Pain (scale 1-3) [facility] ondansetron (ZOFRAN (PF)) injection 8 mg 2021-03 01:30: 00 12-14 01:30 :00 No 8mg 8 mg, Slow IV Push, ONCE, On Mercedes 12/13/21 at 2030, For 1 dose, PACU
Do ses of ondansetro n 16 mg and above need to be administer ed via IV piggyback. For Dose >=24mg ECG monitoring is advisable.
[facility] proMETHazin e (PHENERGAN) 25 mg in NS 50 mL IV piggyback (CNR) 2021-03 00:44: 54 Yes 25mg 25 mg, IV Piggyback, at 200 mL/hr Administer over 15 Minutes, PRN - SEE INSTRUCTIO NS, 1 dose, Starting on Mercedes 12/13/21 at 1944, Until Discontinu ed, Routine, N/V unresponsi ve to Ondansetro n, PACU [facility] lactated ringers IV infusion 500 mL 2021-03 23:45: 00 Yes 500mL at 75 mL/hr, 500 mL, IV Infusion, CONTINUOUS , Starting on Mercedes 12/13/21 at 1845, Until Discontinu ed, Routine, PACU [facility] HYDROmorphO ne (DILAUDID) injection 0.2 mg 2021-03 23:31: 16 Yes .2mg 0.2 mg, Slow IV Push, Q5MIN PRN, 10 doses, Starting on Mercedes 12/13/21 at 1831, Until Discontinu ed, Routine, Pain (scale 7-10), PACU
Us e approved by (Faculty): PACU USE -ANESTHESI A SERVICE-HY DROMORPHON E INJECTIONS [facility] FENTanyl PF (SUBLIMAZE (PF)) injection 25 mcg 2021-03 23:31: 16 Yes 25ug 25 mcg, Slow IV Push, Q5MIN PRN, 4 doses, Starting on Mercedes 12/13/21 at 1831, Until Discontinu ed, Routine, Pain (scale 4-6), PACU [facility] proMETHazin e (PHENERGAN) 12.5 mg in NS 50 mL IV piggyback (CNR) 2021-03 23:31: 16 Yes 12.5mg 12.5 mg, IV Piggyback, at 200 mL/hr Administer over 15 Minutes, PRN, 1 dose, Starting on Mercedes 12/13/21 at 1831, Until Discontinu ed, Routine, Nausea and Vomiting (N/V), PACU [facility] dexmedeTOMI Dine (PRECEDEX) injection 2021-03 22:58: 00 12-13 23:50 :03 No Intravenou s, ONCE INTRA PROCEDURE, Starting on Mercedes 12/13/21 at 1758, Until Mercedes 12/13/21 at 1850, Routine, Intra-op [facility] HYDROmorphO ne (DILAUDID) injection 2021-03 22:16: 00 12-13 23:50 :03 No Slow IV Push, ONCE INTRA PROCEDURE, Starting on Mercedes 12/13/21 at 1716, Until Mercedes 12/13/21 at 1850, Routine, [facility]/5 mL (5 mg/mL) syringe 2021-03 21:59: 00 12-13 23:50 :03 No Slow IV Push, ONCE INTRA PROCEDURE, Starting on Mercedes 12/13/21 at 1659, Until Mercedes 12/13/21 at 1850, Routine, Intra-op [facility] phenylephri ne (VAZCULEP) injection 2021-03 21:56: 00 12-13 23:50 :03 No Slow IV Push, ONCE INTRA PROCEDURE, Starting on Mercedes 12/13/21 at 1656, Until Mercedes 12/13/21 at 1850, Routine, [facility] dexamethaso [facility] (DECADRON PHOSPHATE) injection 2021-03 21:55: 00 12-13 23:50 :03 No IV Push, ONCE INTRA PROCEDURE, Starting on Mercedes 12/13/21 at 1655, Until Mercedes 12/13/21 at 1850, Routine, [facility] vancom[facility] (VANCOCIN) injection 2021-03 21:55: 00 12-13 23:50 :03 No IV Piggyback, ONCE INTRA PROCEDURE, Starting on Mercedes 12/13/21 at 1655, Until Mercedes 12/13/21 at 1850, MARJORIE, Intra-op [facility] ceFAZolin (ANCEF) injection 2021-03 21:50: 00 12-13 23:50 :03 No Slow IV Push, ONCE INTRA PROCEDURE, Starting on Mercedes 12/13/21 at 1650, Until Mercedes 12/13/21 at 1850, MARJORIE, Intra-op [facility] FENTanyl PF (SUBLIMAZE (PF)) injection 2021-03 21:45: 00 12-13 23:50 :03 No Intravenou s, ONCE INTRA PROCEDURE, Starting on Mercedes 12/13/21 at 1645, Until Mercedes 12/13/21 at 1850, Routine, Intra-op [facility] propofoL IV infusion 2021-03 21:36: 00 12-13 23:50 :03 No IV Infusion, ONCE INTRA PROCEDURE, Starting on Mercedes 12/13/21 at 1636, Until Mercedes 12/13/21 at 1850, Routine, Intra-op [facility] lidocaine 1% (XYLOCAINE) 100 mg/10 mL (1 %) injection 2021-03 21:35: 00 12-13 23:50 :03 No Slow IV Push, ONCE INTRA PROCEDURE, Starting on Mercedes 12/13/21 at 1635, Until Mercedes 12/13/21 at 1850, Routine, Intra-op [facility] midazolam (VERSED) injection 2021-03 21:34: 00 12-13 23:50 :03 No IV Push, ONCE INTRA PROCEDURE, Starting on Mercedes 12/13/21 at 1634, Until Mercedes 12/13/21 at 1850, Routine, Intra-op [facility] lactated ringers IV infusion 2021-03 21:26: 00 12-13 23:50 :03 No IV Infusion, CONTINUOUS PRN, Starting on Mercedes 12/13/21 at 1626, Until Mercedes 12/13/21 at 1850, Routine, Intra-op [facility] lactated ringers IV infusion 1,000 mL 2021-03 19:00: 00 Yes 1000mL at 42 mL/hr, 1,000 mL, IV Infusion, CONTINUOUS , Starting on Mercedes 12/13/21 at 1400, Until Discontinu ed, Routine, PACU [facility] No known medications 2021-03 13:50: 01 No No known medication s [facility] ibuprofen 800 mg tablet 2021-03 00:00: 00 12-15 00:00 :00 No [id number] 800mg Take 1 tablet by mouth in the morning and 1 tablet at noon and 1 tablet in the evening. Take with meals. Do all this for 30 days. [facility] acetaminoph en-codeine 300-30 mg tablet 2021-03 013 00:00: 00 12-15 00:00 :00 No [id number] 1{tbl} Take 1 tablet by mouth every 6 (six) hours as needed for Pain (scale 4-6) or Pain (scale 7-10) for up to 15 doses. Indication s: acute pain [facility] No known medications 11-20 11:03: 11 No No known medication s [facility] No known medications 11-12 14:06: 34 No No known medication s [facility] Vital Signs Vital Name Observation Time Observation Value Comments S ayahce Body height 2022-01-01 16:08:00 200.7 cm [facility] Body weight 2022-01-01 16:08:00 148.78 kg [facility] BMI 2022-01-01 16:08:00 36.95 kg/m2 [facility] Systolic blood pressure 2021-12-14 01:00:00 120 mm[Hg] [facility] Diastolic blood pressure 2021-12-14 01:00:00 66 mm[Hg] [facility] Heart rate 2021-12-14 01:00:00 78 /min [facility] Body temperature 2021-12-14 01:00:00 36.39 Cami [facility] Respiratory rate 2021-12-14 01:00:00 18 /min [facility] Oxygen saturation in Arterial blood by Pulse oximetry 2021-12-14 01:00:00 97 /min [facility] Body height 2021-11-20 14:06:00 200.7 cm [facility] Body weight 2021-11-20 14:06:00 150.594 kg [facility] BMI 2021-11-20 14:06:00 37.40 kg/m2 [facility] Body height 2021-11-12 15:55:00 200.7 cm [facility] Body weight 2021-11-12 15:55:00 151.501 kg [facility] BMI 2021-11-12 15:55:00 37.63 kg/m2 [facility] Procedures Procedure Date / Time Performed Performing Clinician Source EXTERNAL PROVIDER RECORDS 2021-12-19 05:01:00 Do ctor Unassigned, [place] [facility] TIME OR (NON-REPORTABLE) 2021-12-13 23:35:00 Elieser Vu [facility] [place] TIME OR (NON-REPORTABLE) 2021-12-13 23:35:00 Elieser Vu [facility] INTUBATION 2021-12-13 22:21:00 Arun Sanchez [facility] TENOLYSIS 2021-12-13 21:12:00 Bird Carnes [facility] NERVE BLOCK 2021-12-13 18:06:53 [facility] COVID-[facility] (ID NOW RAPID TESTING) 2021-12-12 20:07:00 Luis [facility] LAB ONLY COVID INTERPRETATION 2021-12-12 20:07:00 Roman Smith [facility] COVID-19 (ID NOW RAPID TESTING) 2021-12-12 20:07:00 Roman Smith [facility] LAB ONLY COVID INTERPRETATION 2021-12-12 20:07:00 Roman Smith [facility] XR WRIST 3+ VW RIGHT 2021-11-20 14:15:00 Joe Carnes [facility] Encounters Start Date/Time End Date/Time Encounter Type Admission Type Attending Clinicians Care Facility Care Department Encounter ID Source 2023-11-18 08:00:00 2023-11-18 08:00:00 Outpatient LICO CURRY SELENA [facility] [id number] [facility] 2022-04-09 08:00:00 2022-04-10 01:42:00 Hospital Encounter Bird Carnes [facility] [id number] 350.1.13.10 [id number] [id number] [facility] 2022-01-01 08:00:00 2022-01-02 03:57:00 Hospital Encounter Deyvi [facility] 1.2.840.114 350.1.13.10 4.2.7.2.686 [id number] [facility] 2022-01-01 10:56:14 2022-01-01 23:59:00 [facility] [id number] 350.1.13.10 4.2.7.2.686 [id number] [facility] 2022-01-01 16:30:00 2022-01-01 16:45:00 [facility] [id number] 350.1.13.10 4.2.7.2.686 [id number] [facility] 2022-01-01 10:00:00 2022-01-01 12:55:11 [facility] 1.2.840.114 350.1.13.10 4.2.7.2.686 [id number] [facility] 2021-12-19 00:00:00 2021-12-19 00:00:00 Orders Only Doctor Unassigned, [place] [facility] 1.2.840.114 350.1.13.10 4.2.7.2.686 [id number] [facility] 2021-12-13 21:52:00 2021-12-15 00:06:00 [facility] 1.2.840.114 350.1.13.10 4.2.7.2.686 [id number] [facility] 2021-12-12 08:00:00 2021-12-13 21:51:00 Hospital Encounter [facility], [place] [facility] 1.2.840.114 350.1.13.10 4.2.7.2.686 [id number] [facility] 2021-12-13 16:27:00 2021-12-13 18:44:00 Anesthesia Event Bianca Nolan, Ajay [facility] 1.2.840.114 350.1.13.10 4.2.7.2.686 [id number] [facility] 2021-12-13 13:19:00 2021-12-13 16:14:00 Surgery [facility] 1.2.840.114 350.1.13.10 4.2.7.2.686 [id number] [facility] 2021-11-20 08:05:53 2021-11-20 23:59:[address] [facility] 1.2.840.114 350.1.13.10 4.2.7.2.686 [id number] [facility] 2021-11-20 16:30:00 2021-11-20 16:45:00 [facility] 1.2.840.114 350.1.13.10 4.2.7.2.686 [id number] [facility] 2021-11-20 10:00:00 2021-11-20 12:22:[address] [facility] 1.2.840.114 350.1.13.10 4.2.7.2.686 [id number] [facility] 2021-11-12 10:37:27 2021-11-12 23:59:00 Hospital Encounter Keely Dominique [facility] 1.2.840.114 350.1.13.10 4.2.7.2.686 [id number] [facility] 2021-11-12 16:30:00 2021-11-12 16:45:00 Ancillary Visit Therapy, Td Simon Capone [facility] 1.2.840.114 350.1.13.10 4.2.7.2.686 [id number] [facility] 2021-11-12 08:00:00 2021-11-12 14:14:46 Office Visit Keely Dominique [facility] 1.2.840.114 350.1.13.10 4.2.7.2.686 [id number] [facility] 2021-10-25 00:00:00 2021-10-25 00:00:00 Orders Only Doctor Unassigned, [place] [facility] 1.2.840.114 350.1.13.10 4.2.7.2.686 [id number] [facility] 2021-10-10 08:00:00 2021-10-11 17:50:00 Hospital Encounter Chantaleem [facility] 1.2.840.114 350.1.13.10 4.2.7.2.686 [id number] [facility] 2021-10-11 10:59:00 2021-10-11 12:27:00 Surgery Deyvi [facility] 1.2.840.114 350.1.13.10 4.2.7.2.686 [id number] [facility] 2021-10-10 00:00:00 2021-10-10 00:00:00 Outpatient [facility] [id number] [facility]
--- NOTE | 2024-02-05 15:14 | EDPHYS ---
Physician Documentation [facility] Name: Annabel Casillas Age: 48 yrs Sex: Male : 1975 Arrival Date: 02/05/2024 Time: 14:50 Bed DX3 Private MD: ED Physician Tate Carvajal HPI: 02/04 15:18 This 48 yrs old Black Male presents to ER via Ambulatory with complaints of Toe injury. sb4 15:31 right big toe swelling x 6 days. no injury, no prior occurrences. denies any medical sb4 history. wears steel toed boots everyday. no fever. Historical: - Allergies: 15:10 Tylenol; ko1 - Home Meds: 15:10 None [Active]; ko1 - PMHx: 15:10 None; ko1 - PSHx: 15:10 right hand surgery; ko1 - Immunization history:: Adult Immunizations up to date. - Infectious Disease History:: Denies. - Social history:: Smoking status: Patient denies any tobacco usage or history of. ROS: 15:31 Constitutional: Negative for fever, chills, and weight loss, sb4 15:31 MS/extremity: Positive for swelling, tenderness, of the right first toe, 15:31 All other systems are negative, Exam: 15:31 Constitutional: This is a well developed, well nourished patient who is awake, alert, sb4 and in no acute distress. Head/Face: Normocephalic, atraumatic. Eyes: Extra-ocular motions intact. Periorbital areas with no swelling, redness, or edema. ENT: Mucous membranes moist. 15:31 Musculoskeletal/extremity: Joints: the right first toe displays swelling, tenderness, Vital Signs: 15:07 BP 138 / 87; Pulse 94; Resp 16; Temp 97.2; Pulse Ox 99% ; ko1 MDM: 15:12 Medical Screening Exam initiated sb4 15:31 Data reviewed: vital signs, nurses notes, and as a result, I will discharge patient. sb4 Counseling: I had a detailed discussion with the patient and/or guardian regarding the historical points, exam findings, and any diagnostic results supporting the discharge/admit diagnosis, the need for outpatient follow up, for definitive care, to return to the emergency department if symptoms worsen or persist or if there are any questions or concerns that arise at home. 02/04 15:12 Order name: Yvette. Order: wrap big toe; Complete Time: 15:50 sb4 Administered Medications: 15:48 Drug: Colchicine-Probenecid PO 2 tabs PO once Route: PO; ap3 15:50 Follow up: Response: Medication administered at discharge. jl7 Disposition: 16:01 Co-signature as Attending Physician, Tate Carvajal MD I reviewed the patient's care rn provided by the Advanced Practice Provider and agree with the diagnosis and treatment plan. Disposition Summary: 02/05/24 15:13 Discharge Ordered Notes: Location: Home sb4 Problem: new sb4 Symptoms: are unchanged sb4 Condition: Stable sb4 Diagnosis - Gout- right big toe sb4 Followup: sb4 - With: Private Physician - When: As needed - Reason: Recheck today's complaints, Re-evaluation by your physician Discharge Instructions: - Discharge Summary Sheet sb4 - Low-Purine Eating Plan sb4 - Gout, [id number] sb4 Forms: - Work release form sb4 - Patient Portal Instructions sb4 - Leadership Thank You Letter sb4 Prescriptions: - Anaprox DS 550 mg Oral tablet - take 1 tablet ORAL route every 12 hours for 5 days; 10 tablet; Refills: 0, sb4 Product Selection Permitted - Prednisone 20 mg Oral Tablet - take 2 tablets ORAL route once daily for 5 days; 10 tablet; Refills: 0, Product sb4 Selection Permitted Signatures: Tate Carvajal MD MD rn Prokisch, Amanda, RN RN ap3 Venus Coleman RN RN Gillian Luis PA-C PA-C sb4 Zohaib Mosquera RN jl7
--- NOTE | 2024-02-05 15:14 | ER ---
Nurse's Notes [facility] Name: Annabel Casillas Age: 48 yrs Sex: Male : 1975 Arrival Date: 02/05/2024 Time: 14:50 Bed DX3 Private MD: Diagnosis: Gout- right big toe Presentation: 02/04 15:07 Chief complaint: Patient states: right great toe swelling since Friday but its getting ko1 bigger and painful. Coronavirus screen: At this time, the client does not indicate any symptoms associated with coronavirus-19. Ebola Screen: No symptoms or risks identified at this time. Initial Sepsis Screen: Does the patient meet any 2 criteria? No. Patient's initial sepsis screen is negative. Does the patient have a suspected source of infection? No. Patient's initial sepsis screen is negative. Risk Assessment: Do you want to hurt yourself or someone else? Patient reports no desire to harm self or others. Onset of symptoms is unknown. 15:07 Method Of Arrival: Ambulatory ko1 15:07 Acuity: OMAR 4 ko1 Triage Assessment: 15:10 General: Appears in no apparent distress. Behavior is calm, cooperative, appropriate ko1 for age. Pain: Complains of pain in right first toe. Historical: - Allergies: 15:10 Tylenol; ko1 - Home Meds: 15:10 None [Active]; ko1 - PMHx: 15:10 None; ko1 - PSHx: 15:10 right hand surgery; ko1 - Immunization history:: Adult Immunizations up to date. - Infectious Disease History:: Denies. - Social history:: Smoking status: Patient denies any tobacco usage or history of. Screenin:30 [facility] ED Fall Risk Assessment (Adult) History of falling in the last 3 months, jl7 including since admission No falls in past 3 months (0 pts) Confusion or Disorientation No (0 pts) Intoxicated or Sedated No (0 pts) Impaired Gait No (0 pts) Mobility Assist Device Used No (0 pt) Altered Elimination No (0 pt) Score/Fall Risk Level 0 - 2 = Low Risk Oriented to surroundings, Maintained a safe environment. Abuse screen: Denies threats or abuse. Denies injuries from another. Nutritional screening: No deficits noted. Tuberculosis screening: No symptoms or risk factors identified. Vital Signs: 15:07 BP 138 / 87; Pulse 94; Resp 16; Temp 97.2; Pulse Ox 99% ; ko1 ED Course: 14:52 Patient arrived in ED. mr 14:55 Gill[facility] Barnes [facility] sb4 14:55 Tate Carvajal MD is Attending Physician. sb4 15:10 Triage completed. ko1 15:10 Arm band placed on right wrist. Patient placed in waiting room, Patient notified of ko1 wait time. 15:30 Patient has correct armband on for positive identification. Provided Education on: jl7 discharge. 15:44 Zohaib Mosquera, RN is Primary Nurse. jl7 15:50 No provider procedures requiring assistance completed. Patient did not have IV access jl7 during this emergency room visit. Administered Medications: 15:48 Drug: Colchicine-Probenecid PO 2 tabs PO once Route: PO; ap3 15:50 Follow up: Response: Medication administered at discharge. jl7 Medication: 18:29 VIS not applicable for this client. jl7 Outcome: 15:13 Discharge ordered by . sb4 15:50 Discharged to home ambulatory, jl7 15:50 Condition: stable 15:50 Discharge instructions given to patient, Instructed on discharge instructions, follow up and referral plans. medication usage, Demonstrated understanding of instructions, follow-up care, medications, Prescriptions given X 2, 15:51 Patient left the ED. jl7 Signatures: Shae Logan, Reg Reg mr Zohaib Mosquera, RN RN jl7 Ashley Ellsworth RN RN ap3 Venus Coleman RN RN ko1 Gillian Barnes PA-C PA-C sb4
[2024-02-05] MEDS ORDERED: COLCHICINE 0.6 MG TAB ONE (15:46)
[2024-02-05 21:36] VITALS: BP 138/87; TEMP 97.2; O2SAT 99
== END 2024-02-05 15:51 | disposition home or self-care (01) ==
LOC: ER 14:50
DX: M10.9 Gout, unspecified (principal)
CPT/HCPCS: 99283

== ENCOUNTER 2024-03-04 12:26 | Emergency (ER) | payer OTHER ==
--- OUTSIDE RECORDS SUMMARY | 2024-03-04 12:29 | XMS REPORT | Continuity of Care Document ---
Author Name Unknown Address [address] [facility] [address] [facility] [address] [place] [id number] [facility] thconnect Address [address] [facility] [address] [place] [address] Care Team Providers Care Scrap Baller Name Role Phone [facility] DEPT OF Primary Care Physician LICO Levy Attending Clinician Unavailable LICO SMART Attending Clinician Unavailable Bird Carnes MD Attending Clinician [phone] Therapy, [facility] Occupational Attending Clinician Un Simon Ledezma MD Attending Clinician [phone] Doctor Unassigned, [place] Attending Clinician U Bianca Balderrama MD Attending Clinician Yolanda ASHER, Ajay Maria Attending Clinician [phone] Keely Dominique MD Attending Clinician [phone] Therapy, [facility] Physical Attending Clinician Lesly Carnes MD, Bird Admitting Clinician Payers Payer Name Policy Type Policy Number Effective Date Expirati on Date Source Problems Condition Name Condition Details Condition Category Status Onset Date Resolution Date Last Treatment Date Treating Clinician Comments Source Pain Pain Disease Active 11-23 00:00: 00 Overview: Formattin g of this note might be different from the original. Added automatic ally from request for surgery [id number] [facility] Arthritis Arthritis Disease Active 11-23 00:00: 00 Overview: Formattin g of this note might be different from the original. 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 Added automatic ally from request for surgery [id number] [facility] Chronic pain of left knee Chronic pain of left knee Disease Active 11-22 00:00: 00 [facility] Obesity (BMI 30-39.9) Obesity (BMI 30-39.9) Disease Active 10-11 00:00: 00 [facility] Scarring Scarring Disease Active 07-30 00:00: 00 [facility] Weakness of right hand Weakness of right hand Disease Active 07-30 00:00: 00 [facility] Right wrist pain Right wrist pain Disease Active 07-30 00:00: 00 [facility] Edema of hand Edema of hand Disease Active 07-30 00:00: 00 [facility] Allergies, Adverse Reactions, Alerts Allergy Name Allergy Type Status Severity Reaction(s) Onset Date Inactive Date Treating Clinician Comments Source ACETAMIN OPHEN DRUG INGREDI Active High Rash 09-08 00:00: 00 [facility] Acetamin ophen Propensi ty to adverse reaction s Active Rash 09-08 00:00: 00 [facility] NSAIDS (NON-VALENTINO ROIDAL ANTI-INF LAMMATOR Y DRUG) Drug Class Active ITCHING 2014-03 00:00: 00 [facility] Nsaids (Non-Valentino roidal Anti-Inf lammator y Drug) Propensi ty to adverse reaction s Active Rash 2014-03 00:00: 00 Patient states not allergic to all NSAIDS just ibuprofen . Pt received ketorolac last surgery without any problems [facility] Social History Social Habit Start Date Stop Date Quantity Comments Source Exposure to SARS-CoV-2 (event) 2021-12-22 00:00:00 2022-01-01 11:07:00 Not sure [facility] Alcohol intake 2022-01-01 00:00:00 2022-01-01 00:00:00 0 /d [facility] Cigarettes smoked current (pack per day) - Reported 2021-09-11 00:00:00 2021-09-11 00:00:00 [facility] Tobacco use and exposure 2021-09-11 00:00:00 2021-09-11 00:00:00 Former smokeless tobacco user [facility] History of tobacco use 2014-01-10 00:00:00 Chews Tobacco [facility] Sex Ass[birth year] At 1975 00:00:00 1975 00:00:00 [facility] Smoking Status Start Date Stop Date Source Ex-smoker 2021-09-11 00:00:00 2021-09-11 00:00:[address] [facility] Medications Ordered Medication Name Filled Medication Name Start Date Stop Date Current Medication? Ordering Clinician Indication Dosage Frequency Signature (SIG) Comments Components Source No known medications 2021-03 11:20: 39 No No known medication s [facility] acetaminoph en-codeine (TYLENOL #3) 300-30 mg tablet 1 tablet 2021-03 01:31: 02 Yes 1{tbl} 1 tablet, Oral, Q6HPRN, Starting on Mercedes 12/13/21 at 2030, Until Discontinu ed, Routine, Pain (scale 1-3) [facility] ondansetron (ZOFRAN (PF)) injection 8 mg 2021-03 01:30: 00 12-14 01:30 :00 No 8mg 8 mg, Slow IV Push, ONCE, On Mercedes 12/13/21 at 2030, For 1 dose, PACU
Do ses of ondansetro n 16 mg and above need to be administer ed via IV piggyback. For Dose >=24mg ECG monitoring is advisable.
[facility] proMETHazin e (PHENERGAN) 25 mg in NS 50 mL IV piggyback (CNR) 2021-03 00:44: 54 Yes 25mg 25 mg, IV Piggyback, at 200 mL/hr Administer over 15 Minutes, PRN - SEE INSTRUCTIO NS, 1 dose, Starting on Mercedes 12/13/21 at 1944, Until Discontinu ed, Routine, N/V unresponsi ve to Ondansetro n, PACU [facility] lactated ringers IV infusion 500 mL 2021-03 23:45: 00 Yes 500mL at 75 mL/hr, 500 mL, IV Infusion, CONTINUOUS , Starting on Mercedes 12/13/21 at 1845, Until Discontinu ed, Routine, PACU [facility] HYDROmorphO ne (DILAUDID) injection 0.2 mg 2021-03 23:31: 16 Yes .2mg 0.2 mg, Slow IV Push, Q5MIN PRN, 10 doses, Starting on Mercedes 12/13/21 at 1831, Until Discontinu ed, Routine, Pain (scale 7-10), PACU
Us e approved by (Faculty): PACU USE -ANESTHESI A SERVICE-HY DROMORPHON E INJECTIONS [facility] FENTanyl PF (SUBLIMAZE (PF)) injection 25 mcg 2021-03 23:31: 16 Yes 25ug 25 mcg, Slow IV Push, Q5MIN PRN, 4 doses, Starting on Mercedes 12/13/21 at 1831, Until Discontinu ed, Routine, Pain (scale 4-6), PACU [facility] proMETHazin e (PHENERGAN) 12.5 mg in NS 50 mL IV piggyback (CNR) 2021-03 23:31: 16 Yes 12.5mg 12.5 mg, IV Piggyback, at 200 mL/hr Administer over 15 Minutes, PRN, 1 dose, Starting on Mercedes 12/13/21 at 1831, Until Discontinu ed, Routine, Nausea and Vomiting (N/V), PACU [facility] dexmedeTOMI Dine (PRECEDEX) injection 2021-03 22:58: 00 12-13 23:50 :03 No Intravenou s, ONCE INTRA PROCEDURE, Starting on Mercedes 12/13/21 at 1758, Until Mercedes 12/13/21 at 1850, Routine, Intra-op [facility] HYDROmorphO ne (DILAUDID) injection 2021-03 22:16: 00 12-13 23:50 :03 No Slow IV Push, ONCE INTRA PROCEDURE, Starting on Mercedes 12/13/21 at 1716, Until Mercedes 12/13/21 at 1850, Routine, [facility]/5 mL (5 mg/mL) syringe 2021-03 21:59: 00 12-13 23:50 :03 No Slow IV Push, ONCE INTRA PROCEDURE, Starting on Mercedes 12/13/21 at 1659, Until Mercedes 12/13/21 at 1850, Routine, Intra-op [facility] phenylephri ne (VAZCULEP) injection 2021-03 21:56: 00 12-13 23:50 :03 No Slow IV Push, ONCE INTRA PROCEDURE, Starting on Mercedes 12/13/21 at 1656, Until Mercedes 12/13/21 at 1850, Routine, [facility] dexamethaso ne (DECADRON PHOSPHATE) injection 2021-03 21:55: 00 12-13 23:50 :03 No IV Push, ONCE INTRA PROCEDURE, Starting on Mercedes 12/13/21 at 1655, Until Mercedes 12/13/21 at 1850, Routine, [facility] vancomycin (VANCOCIN) injection 2021-03 21:55: 00 12-13 23:50 :03 No IV Piggyback, ONCE INTRA PROCEDURE, Starting on Mercedes 12/13/21 at 1655, Until Mercedes 12/13/21 at 1850, MARJORIE, Intra-op [facility] ceFAZolin (ANCEF) injection 2021-03 21:50: 00 12-13 23:50 :03 No Slow IV Push, ONCE INTRA PROCEDURE, Starting on Mercedes 12/13/21 at 1650, Until Mercedes 12/13/21 at 1850, MARJORIE, Intra-op [facility] FENTanyl PF (SUBLIMAZE (PF)) injection 2021-03 21:45: 00 12-13 23:50 :03 No Intravenou s, ONCE INTRA PROCEDURE, Starting on Mercedes 12/13/21 at 1645, Until Mercedes 12/13/21 at 1850, Routine, Intra-op [facility] propofoL IV infusion 2021-03 21:36: 00 12-13 23:50 :03 No IV Infusion, ONCE INTRA PROCEDURE, Starting on Mercedes 12/13/21 at 1636, Until Mercedes 12/13/21 at 1850, Routine, Intra-op [facility] lidocaine 1% (XYLOCAINE) 100 mg/10 mL (1 %) injection 2021-03 21:35: 00 12-13 23:50 :03 No Slow IV Push, ONCE INTRA PROCEDURE, Starting on Mercedes 12/13/21 at 1635, Until Mercedes 12/13/21 at 1850, Routine, Intra-op [facility] midazolam (VERSED) injection 2021-03 21:34: 00 12-13 23:50 :03 No IV Push, ONCE INTRA PROCEDURE, Starting on Mercedes 12/13/21 at 1634, Until Mercedes 12/13/21 at 1850, Routine, Intra-op [facility] lactated ringers IV infusion 2021-03 21:26: 00 12-13 23:50 :03 No IV Infusion, CONTINUOUS PRN, Starting on Mercedes 12/13/21 at 1626, Until Mercedes 12/13/21 at 1850, Routine, Intra-op [facility] lactated ringers IV infusion 1,000 mL 2021-03 19:00: 00 Yes 1000mL at 42 mL/hr, 1,000 mL, IV Infusion, CONTINUOUS , Starting on Mercedes 12/13/21 at 1400, Until Discontinu ed, Routine, PACU [facility] No known medications 2021-03 13:50: 01 No No known medication s [facility] ibuprofen 800 mg tablet 2021-03 00:00: 00 12-15 00:00 :00 No [id number] 800mg Take 1 tablet by mouth in the morning and 1 tablet at noon and 1 tablet in the evening. Take with meals. Do all this for 30 days. [facility] acetaminoph en-codeine 300-30 mg tablet 2021-03 013 00:00: 00 12-15 00:00 :00 No [id number] 1{tbl} Take 1 tablet by mouth every 6 (six) hours as needed for Pain (scale 4-6) or Pain (scale 7-10) for up to 15 doses. Indication s: acute pain [facility] No known medications 11-20 11:03: 11 No No known medication s [facility] No known medications 11-12 14:06: 34 No No known medication s [facility] Vital Signs Vital Name Observation Time Observation Value Comments S gail Body height 2022-01-01 16:08:00 200.7 cm [facility] Body weight 2022-01-01 16:08:00 148.78 kg [facility] BMI 2022-01-01 16:08:00 36.95 kg/m2 [facility] Respiratory rate 2021-12-14 01:00:00 18 /min [facility] Oxygen saturation in Arterial blood by Pulse oximetry 2021-12-14 01:00:00 97 /min [facility] Systolic blood pressure 2021-12-14 01:00:00 120 mm[Hg] [facility] Diastolic blood pressure 2021-12-14 01:00:00 66 mm[Hg] [facility] Heart rate 2021-12-14 01:00:00 78 /min [facility] Body temperature 2021-12-14 01:00:00 36.39 Cami [facility] Body height 2021-11-20 14:06:00 200.7 cm [facility] Body weight 2021-11-20 14:06:00 150.594 kg [facility] BMI 2021-11-20 14:06:00 37.40 kg/m2 [facility] Body height 2021-11-12 15:55:00 200.7 cm [facility] Body weight 2021-11-12 15:55:00 151.501 kg [facility] BMI 2021-11-12 15:55:00 37.63 kg/m2 [facility] Procedures Procedure Date / Time Performed Performing Clinician Source EXTERNAL PROVIDER RECORDS 2021-12-19 05:01:00 Do ctor Unassigned, [place] [facility] TIME OR (NON-REPORTABLE) 2021-12-13 23:35:00 Elieser Vu [facility] [place] TIME OR (NON-REPORTABLE) 2021-12-13 23:35:00 Elieser Vu [facility] INTUBATION 2021-12-13 22:21:00 Arun Sanchez [facility] TENOLYSIS 2021-12-13 21:12:00 Bird Carnes [facility] NERVE BLOCK 2021-12-13 18:06:[address] [facility] COVID-19 (ID NOW RAPID TESTING) 2021-12-12 20:07:00 Luis [facility] LAB ONLY COVID INTERPRETATION 2021-12-12 20:07:00 Roman Smith [facility] COVID-19 (ID NOW RAPID TESTING) 2021-12-12 20:07:00 Roman Smith [facility] LAB ONLY COVID INTERPRETATION 2021-12-12 20:07:00 Roman Smith [facility] XR WRIST 3+ VW RIGHT 2021-11-20 14:15:00 Joe Carnes [facility] Encounters Start Date/Time End Date/Time Encounter Type Admission Type Attending Clinicians Care Facility Care Department Encounter ID Source 2023-11-18 08:00:00 2023-11-18 08:00:00 Outpatient LICO CURRY SELENA [facility] [id number] [facility] 2022-04-09 08:00:00 2022-04-10 01:42:00 Hospital Encounter Bird Carnes [facility] [id number] 350.1.13.10 [id number] [id number] [facility] 2022-01-01 08:00:00 2022-01-02 03:57:00 [facility] [id number] 350.1.13.10 4.2.7.2.686 [id number] [facility] 2022-01-01 10:56:14 2022-01-01 23:59:00 [facility] 1.2.840.114 350.1.13.10 4.2.7.2.686 [id number] [facility] 2022-01-01 16:30:00 2022-01-01 16:45:00 [facility] 1.2.840.114 350.1.13.10 4.2.7.2.686 [id number] [facility] 2022-01-01 10:00:00 2022-01-01 12:55:11 [facility] 1.2.840.114 350.1.13.10 4.2.7.2.686 [id number] [facility] 2021-12-19 00:00:00 2021-12-19 00:00:00 Orders Only Doctor Unassigned, [place] [facility] 1.2.840.114 350.1.13.10 4.2.7.2.686 [id number] [facility] 2021-12-13 21:52:00 2021-12-15 00:06:00 [facility] 1.2.840.114 350.1.13.10 4.2.7.2.686 [id number] [facility] 2021-12-12 08:00:00 2021-12-13 21:51:00 Hospital [facility] 1.2.840.114 350.1.13.10 4.2.7.2.686 [id number] [facility] 2021-12-13 16:27:00 2021-12-13 18:44:00 Anesthesia Event Bianca Nolan, Ajay [facility] 1.2.840.114 350.1.13.10 4.2.7.2.686 [id number] [facility] 2021-12-13 13:19:00 2021-12-13 16:14:00 Surgery [facility] 1.2.840.114 350.1.13.10 4.2.7.2.686 [id number] [facility] 2021-11-20 08:05:53 2021-11-20 23:59:00 Hospital Encounter [facility] 1.2.840.114 350.1.13.10 4.2.7.2.686 [id number] [facility] 2021-11-20 16:30:00 2021-11-20 16:45:00 [facility] 1.2.840.114 350.1.13.10 4.2.7.2.686 [id number] [facility] 2021-11-20 10:00:00 2021-11-20 12:22:04 Office Visit [facility] 1.2.840.114 350.1.13.10 4.2.7.2.686 [id number] [facility] 2021-11-12 10:37:27 2021-11-12 23:59:00 Hospital Encounter Keely Dominique [facility] 1.2.840.114 350.1.13.10 4.2.7.2.686 [id number] [facility] 2021-11-12 16:30:00 2021-11-12 16:45:00 Ancillary Visit Therapy, [place] Simon Capone [facility] 1.2.840.114 350.1.13.10 4.2.7.2.686 [id number] [facility] 2021-11-12 08:00:00 2021-11-12 14:14:46 Office Visit Keely Dominique [facility] 1.2.840.114 350.1.13.10 4.2.7.2.686 [id number] [facility] 2021-10-25 00:00:00 2021-10-25 00:00:00 Orders Only Doctor Unassigned, [place] [facility] 1.2.840.114 350.1.13.10 4.2.7.2.686 [id number] [facility] 2021-10-10 08:00:00 2021-10-11 17:50:00 [facility] 1.2.840.114 350.1.13.10 4.2.7.2.686 [id number] [facility] 2021-10-11 10:59:00 2021-10-11 12:27:00 Surgery Deyvi [facility] 1.2.840.114 350.1.13.10 4.2.7.2.686 [id number] [facility] 2021-10-10 00:00:00 2021-10-10 00:00:00 Outpatient [facility] [id number] [facility]
--- NOTE | 2024-03-04 14:05 | RAD REPORT ---
EXAMINATION: XR RIGHT FOOT CLINICAL INDICATION: Male, 48 years old. R great toe injury TECHNIQUE: Multiple views of the right foot were obtained. COMPARISON: 01/09/2024 FINDINGS: Prominent degenerative change with subchondral cysts noted marginal osteophyte formation in terphalangeal joint of the great toe. Soft tissue swelling is also present. This may indicate gout or other inflammatory arthritides. No acute fracture seen.
--- NOTE | 2024-03-04 14:08 | EDPHYS ---
Physician Documentation [facility] Name: Annabel Casillas Age: 48 yrs Sex: Male : 1975 Arrival Date: 03/04/2024 Time: 12:26 Bed 13 Private MD: ED Physician Pepe Salmeron HPI: 03/04 13:03 This 48 yrs old Black Male presents to ER via Ambulatory with complaints of Toe Injury. ec2 13:03 Patient arrives today for evaluation of right great toe swelling. Reports that he was ec2 recently treated for gout however symptoms have since not resolved. No fevers or chills, no nausea or vomiting.. Historical: - Allergies: 12:51 Tylenol; iw - Home Meds: 12:51 None [Active]; iw - PMHx: 12:51 None; iw - PSHx: 12:51 right hand surgery; iw - Immunization history:: Adult Immunizations up to date. - Infectious Disease History:: Denies. - Social history:: Smoking status: Patient reports the use of cigarette tobacco products, smokes one-half pack cigarettes per day. ROS: 13:04 Constitutional: as per hpi ec2 Exam: 13:04 Constitutional: GEN: NAD Head: atraumatic Eyes: EOMI Ears: External ears are ec2 normal. CV: regular rate LUNGS: no respiratory distress ABD: non-distended SKIN: no evidence of rashes MSK: n soft tissue swelling noted to the right great toe. Some warmth associated with it as well. Some rubor as well. Vital Signs: 12:50 BP 119 / 85; Pulse 92; Resp 16; Temp 98.4; Pulse Ox 98% on R/A; Weight 139.71 kg; iw Height 6 ft. 7 in. ; Pain 6/10; 14:32 BP 154 / 107; Pulse 87; Resp 16; Pulse Ox 98% on R/A; ll1 12:50 Body Mass Index 34.70 (139.71 kg, 200.66 cm) iw 12:50 Pain Scale: Adult iw MDM: 12:30 Medical Screening Exam initiated ec2 13:04 Data reviewed: vital signs, nurses notes. ED course: Patient arrives today for ec2 evaluation of right great toe swelling. Examination yields MSK findings as above. Suspect possible cellulitis. Will obtain x-ray to evaluate for osteomyelitis. Additionally considered gout. Given patient was recently treated for gout, will forego empiric therapy for this.. 03/04 13:02 Order name: Foot Right 3 View XRAY; Complete Time: 14:07 ec2 Administered Medications: 14:21 Drug: Trimethoprim-Sulfamethoxazole PO (160 mg-800 mg (DS) 1 tablet PO once Route: PO; ll1 14:35 Follow up: Response: No adverse reaction ll1 Disposition Summary: 03/04/24 14:08 Discharge Ordered Notes: Location: Home ec2 Condition: Stable ec2 Diagnosis - Cellulitis of right toe ec2 Followup: ec2 - With: Private Physician - When: - Reason: Re-evaluation by your physician Discharge Instructions: - Discharge Summary Sheet ec2 - Cellulitis, Adult ec2 Forms: - Work release form ll1 - Medication Reconciliation Form ec2 - Antibiotic Education ec2 - Prescription Opioid Use ec2 - Patient Portal Instructions ec2 - Leadership Thank You Letter ec2 Prescriptions: - Bactrim DS 800-160 mg Oral Tablet - take 1 tablet ORAL route every 12 hours for 7 days; 14 tablet; Refills: 0, ec2 Product Selection Permitted Signatures: Dispatcher [employer] Rosalva Pascual RN RN Shola Irwin RN RN 1 Pepe Salmeron MD MD ec2 Corrections: (The following items were deleted from the chart) 12:52 12:51 Allergies: Tylenol; [facility] 12:52 12:51 Social history: Smoking status: [facility]
--- NOTE | 2024-03-04 14:08 | ER ---
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 Coronavirus screen: At this time, the client does not indicate any symptoms associated with coronavirus-19. Ebola Screen: No symptoms or risks identified at this time. Initial Sepsis Screen: Does the patient meet any 2 criteria? No. Patient's initial sepsis screen is negative. Does the patient have a suspected source of infection? No. Patient's initial sepsis screen is negative. Risk Assessment: Do you want to hurt yourself or someone else? Patient reports no desire to harm self or others. 12:50 Method Of Arrival: Ambulatory iw 12:50 Acuity: OMAR 4 iw 14:35 Onset of symptoms was February 05, 2024. ll1 Historical: - Allergies: 12:51 Tylenol; iw - Home Meds: 12:51 None [Active]; iw - PMHx: 12:51 None; iw - PSHx: 12:51 right hand surgery; iw - Immunization history:: Adult Immunizations up to date. - Infectious Disease History:: Denies. - Social history:: Smoking status: Patient reports the use of cigarette tobacco products, smokes one-half pack cigarettes per day. Screenin:34 [facility] ED Fall Risk Assessment (Adult) History of falling in the last 3 months, ll1 including since admission No falls in past 3 months (0 pts) Confusion or Disorientation No (0 pts) Intoxicated or Sedated No (0 pts) Impaired Gait No (0 pts) Mobility Assist Device Used No (0 pt) Altered Elimination No (0 pt) Score/Fall Risk Level 0 - 2 = Low Risk Maintained a safe environment, Hourly rounding (assess needs \T\ fall precautionary measures) done. Abuse screen: Denies threats or abuse. Nutritional screening: No deficits noted. Tuberculosis screening: No symptoms or risk factors identified. Assessment: 13:30 General: Appears in no apparent distress. Behavior is calm, cooperative, appropriate ll1 for age. Pain: Complains of pain in R foot 1st digit Quality of pain is described as aching. Derm: R foot 1st digit pain Reports pain. Musculoskeletal: Circulation, motion, and sensation intact. Capillary refill < 3 seconds, in right toes. Reports pain in R foot 1st digit. Vital Signs: 12:50 BP 119 / 85; Pulse 92; Resp 16; Temp 98.4; Pulse Ox 98% on R/A; Weight 139.71 kg; iw Height 6 ft. 7 in. ; Pain 6/10; 14:32 BP 154 / 107; Pulse 87; Resp 16; Pulse Ox 98% on R/A; ll1 12:50 Body Mass Index 34.70 (139.71 kg, 200.66 cm) iw 12:50 Pain Scale: Adult iw ED Course: 12:28 Patient arrived in ED. al6 12:30 Pepe Salmeron MD is Attending Physician. ec2 12:51 Triage completed. iw 12:52 Arm band placed on. iw 13:15 Shola Irwin RN is Primary Nurse. ll1 13:39 Foot Right 3 View XRAY In Process Unspecified. EDMS 14:34 Patient has correct armband on for positive identification. Bed in low position. Call ll1 light in reach. Provided Education on: ER procedures and process. Cardiac monitoring not applicable on this patient. 14:34 No provider procedures requiring assistance completed. Patient did not have IV access ll1 during this emergency room visit. Administered Medications: 14:21 Drug: Trimethoprim-Sulfamethoxazole PO (160 mg-800 mg (DS) 1 tablet PO once Route: PO; ll1 14:35 Follow up: Response: No adverse reaction ll1 Medication: 14:34 VIS not applicable for this client. ll1 Outcome: 14:08 Discharge ordered by . ec2 14:34 Discharged to home ambulatory, ll1 14:34 Condition: stable 14:34 Discharge instructions given to patient, Instructed on discharge instructions, follow up and referral plans. medication usage, Demonstrated understanding of instructions, follow-up care, medications, Prescriptions given X 1, 14:35 Patient left the ED. ll1 Signatures: Dispatcher [employer] EDMS Rosalva Johnson RN RN iw Shola Irwin RN RN ll1 Pepe Salmeron MD MD 2 Sakshi [id number] Corrections: (The following items were deleted from the chart) 12:51 Allergies: Tylenol; [facility] 12:51 Social history: Smoking status: [facility]
[2024-03-04] MEDS ORDERED: SMZ./TMP. 800/160 MG TABLET ONE (14:11)
[2024-03-04 14:55] VITALS: TEMP 98.4; O2SAT 98
[2024-03-04 14:56] VITALS: BP 154/107
== END 2024-03-04 14:35 | disposition home or self-care (01) ==
LOC: ER 12:26
DX: L03.031 Cellulitis of right toe (principal); F17.210 Nicotine dependence, cigarettes, uncomplicated; Z88.8 Allergy status to other drugs, medicaments and biological substances
CPT/HCPCS: 99283

== ENCOUNTER 2024-04-27 11:09 | Emergency (ER) | payer OTHER ==
--- OUTSIDE RECORDS SUMMARY | 2024-04-27 11:13 | XMS REPORT | Continuity of Care Document ---
Author Name Unknown Address [address] [place] [address] [facility] thconnect Address 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 Role Phone [facility] DEPT OF Primary Care Physician LICO Levy Attending Clinician Unavailable LICO SMART Attending Clinician Unavailable Bird Carnes MD Attending Clinician [phone] Therapy, [facility] Occupational Attending Clinician Un Simon Ledezma MD Attending Clinician [phone] Doctor Unassigned, [place] Attending Clinician U Bianca Balderrama MD Attending Clinician [phone] Ajay Guerrero MD Attending Clinician [phone] Keely Dominique MD Attending Clinician Therapy, [facility] Physical Attending Clinician Bird Schultz MD Admitting Clinician [phone] Payers Payer Name Policy Type Policy Number Effective Date Expirati on Date Source Problems Condition Name Condition Details Condition Category Status Onset Date Resolution Date Last Treatment Date Treating Clinician Comments Source Pain Pain Disease Active 11-23 00:00: 00 Overview: Formattin g of this note might be different from the original. Added automatic ally from request for surgery [id number] [facility] Arthritis Arthritis Disease Active 11-23 00:00: 00 Overview: Formattin g of this note might be different from the original. 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 Added automatic ally from request for surgery [id number] [facility] Chronic pain of left knee Chronic pain of left knee Disease Active 11-22 00:00: 00 [facility] Obesity (BMI 30-39.9) Obesity (BMI 30-39.9) Disease Active 10-11 00:00: 00 [facility] Scarring Scarring Disease Active 07-30 00:00: 00 [facility] Weakness of right hand Weakness of right hand Disease Active 07-30 00:00: 00 [facility] Right wrist pain Right wrist pain Disease Active 07-30 00:00: 00 [facility] Edema of hand Edema of hand Disease Active 07-30 00:00: 00 [facility] Allergies, Adverse Reactions, Alerts Allergy Name Allergy Type Status Severity Reaction(s) Onset Date Inactive Date Treating Clinician Comments Source ACETAMIN OPHEN DRUG INGREDI Active High Rash 09-08 00:00: 00 [facility] Acetamin ophen Propensi ty to adverse reaction s Active Rash 09-08 00:00: 00 [facility] NSAIDS (NON-VALENTINO ROIDAL ANTI-INF LAMMATOR Y DRUG) Drug Class Active ITCHING 2014-03 00:00: 00 [facility] Nsaids (Non-Valentino roidal Anti-Inf lammator y Drug) Propensi ty to adverse reaction s Active Rash 2014-03 00:00: 00 Patient states not allergic to all NSAIDS just ibuprofen . Pt received ketorolac last surgery without any problems [facility] Social History Social Habit Start Date Stop Date Quantity Comments Source Exposure to SARS-CoV-2 (event) 2021-12-22 00:00:00 2022-01-01 11:07:00 Not sure [facility] Alcohol intake 2022-01-01 00:00:00 2022-01-01 00:00:00 0 /d [facility] Cigarettes smoked current (pack per day) - Reported 2021-09-11 00:00:00 2021-09-11 00:00:00 [facility] Tobacco use and exposure 2021-09-11 00:00:00 2021-09-11 00:00:00 Former smokeless tobacco user [facility] History of tobacco use 2014-01-10 00:00:00 Chews Tobacco [facility] Sex Assigned At 1975 00:00:00 1975 00:00:00 [facility] Smoking Status Start Date Stop Date Source Ex-smoker 2021-09-11 00:00:00 2021-09-11 00:00:00 U [facility] Medications Ordered Medication Name Filled Medication Name Start Date Stop Date Current Medication? Ordering Clinician Indication Dosage Frequency Signature (SIG) Comments Components Source No known medications 2021-03 11:20: 39 No No known medication s [facility] acetaminoph en-codeine (TYLENOL #3) 300-30 mg tablet 1 tablet 2021-03 01:31: 02 Yes 1{tbl} 1 tablet, Oral, Q6HPRN, Starting on Mercedes 12/13/21 at 2030, Until Discontinu ed, Routine, Pain (scale 1-3) [facility] ondansetron (ZOFRAN (PF)) injection 8 mg 2021-03 01:30: 00 12-14 01:30 :00 No 8mg 8 mg, Slow IV Push, ONCE, On Mercedes 12/13/21 at 2030, For 1 dose, PACU
Do ses of ondansetro n 16 mg and above need to be administer ed via IV piggyback. For Dose >=24mg ECG monitoring is advisable.
[facility] proMETHazin e (PHENERGAN) 25 mg in NS 50 mL IV piggyback (CNR) 2021-03 00:44: 54 Yes 25mg 25 mg, IV Piggyback, at 200 mL/hr Administer over 15 Minutes, PRN - SEE INSTRUCTIO NS, 1 dose, Starting on Mercedes 12/13/21 at 1944, Until Discontinu ed, Routine, N/V unresponsi ve to Ondansetro n, PACU [facility] lactated ringers IV infusion 500 mL 2021-03 23:45: 00 Yes 500mL at 75 mL/hr, 500 mL, IV Infusion, CONTINUOUS , Starting on Mercedes 12/13/21 at 1845, Until Discontinu ed, Routine, PACU [facility] HYDROmorphO ne (DILAUDID) injection 0.2 mg 2021-03 23:31: 16 Yes .2mg 0.2 mg, Slow IV Push, Q5MIN PRN, 10 doses, Starting on Mercedes 12/13/21 at 1831, Until Discontinu ed, Routine, Pain (scale 7-10), PACU
Us e approved by (Faculty): PACU USE -ANESTHESI A SERVICE-HY DROMORPHON E INJECTIONS [facility] FENTanyl PF (SUBLIMAZE (PF)) injection 25 mcg 2021-03 23:31: 16 Yes 25ug 25 mcg, Slow IV Push, Q5MIN PRN, 4 doses, Starting on Mercedes 12/13/21 at 1831, Until Discontinu ed, Routine, Pain (scale 4-6), PACU [facility] proMETHazin e (PHENERGAN) 12.5 mg in NS 50 mL IV piggyback (CNR) 2021-03 23:31: 16 Yes 12.5mg 12.5 mg, IV Piggyback, at 200 mL/hr Administer over 15 Minutes, PRN, 1 dose, Starting on Mercedes 12/13/21 at 1831, Until Discontinu ed, Routine, Nausea and Vomiting (N/V), PACU [facility] dexmedeTOMI Dine (PRECEDEX) injection 2021-03 22:58: 00 12-13 23:50 :03 No Intravenou s, ONCE INTRA PROCEDURE, Starting on Mercedes 12/13/21 at 1758, Until Mercedes 12/13/21 at 1850, Routine, Intra-op [facility] HYDROmorphO ne (DILAUDID) injection 2021-03 22:16: 00 12-13 23:50 :03 No Slow IV Push, ONCE INTRA PROCEDURE, Starting on Mercedes 12/13/21 at 1716, Until Mercedes 12/13/21 at 1850, Routine, Intra-op [facility] ePHEDrine 25 mg/5 mL (5 mg/mL) syringe 2021-03 21:59: 00 12-13 23:50 :03 No Slow IV Push, ONCE INTRA PROCEDURE, Starting on Mercedes 12/13/21 at 1659, Until Mercedes 12/13/21 at 1850, Routine, Intra-op [facility] phenylephri ne (VAZCULEP) injection 2021-03 21:56: 00 12-13 23:50 :03 No Slow IV Push, ONCE INTRA PROCEDURE, Starting on Mercedes 12/13/21 at 1656, Until Mercedes 12/13/21 at 1850, Routine, [facility] [place] dexamethaso ne (DECADRON PHOSPHATE) injection 2021-03 21:55: 00 12-13 23:50 :03 No IV Push, ONCE INTRA PROCEDURE, Starting on Mercedes 12/13/21 at 1655, Until Mercedes 12/13/21 at 1850, Routine, Intra-op [facility] vancomycin (VANCOCIN) injection 2021-03 21:55: 00 12-13 23:50 :03 No IV Piggyback, ONCE INTRA PROCEDURE, Starting on Mercedes 12/13/21 at 1655, Until Mercedes 12/13/21 at 1850, MARJORIE, Intra-op [facility] ceFAZolin (ANCEF) injection 2021-03 21:50: 00 12-13 23:50 :03 No Slow IV Push, ONCE INTRA PROCEDURE, Starting on Mercedes 12/13/21 at 1650, Until Mercedes 12/13/21 at 1850, MARJORIE, Intra-op [facility] FENTanyl PF (SUBLIMAZE (PF)) injection 2021-03 21:45: 00 12-13 23:50 :03 No Intravenou s, ONCE INTRA PROCEDURE, Starting on Mercedes 12/13/21 at 1645, Until Mercedes 12/13/21 at 1850, Routine, [facility]-op [facility] [place] [place] propofoL IV infusion 2021-03 21:36: 00 12-13 23:50 :03 No IV Infusion, ONCE INTRA PROCEDURE, Starting on Mercedes 12/13/21 at 1636, Until Mercedes 12/13/21 at 1850, Routine, Intra-op [facility] lidocaine 1% (XYLOCAINE) 100 mg/10 mL (1 %) injection 2021-03 21:35: 00 12-13 23:50 :03 No Slow IV Push, ONCE INTRA PROCEDURE, Starting on Mercedes 12/13/21 at 1635, Until Mercedes 12/13/21 at 1850, Routine, Intra-op [facility] midazolam (VERSED) injection 2021-03 21:34: 00 12-13 23:50 :03 No IV Push, ONCE INTRA PROCEDURE, Starting on Mercedes 12/13/21 at 1634, Until Mercedes 12/13/21 at 1850, Routine, Intra-op [facility] lactated ringers IV infusion 2021-03 21:26: 00 12-13 23:50 :03 No IV Infusion, CONTINUOUS PRN, Starting on Mercedes 12/13/21 at 1626, Until Mercedes 12/13/21 at 1850, Routine, Intra-op [facility] lactated ringers IV infusion 1,000 mL 2021-03 19:00: 00 Yes 1000mL at 42 mL/hr, 1,000 mL, IV Infusion, CONTINUOUS , Starting on Mercedes 12/13/21 at 1400, Until Discontinu ed, Routine, PACU [facility] No known medications 2021-03 13:50: 01 No No known medication s [facility] ibuprofen 800 mg tablet 2021-03 00:00: 00 12-15 00:00 :00 No [id number] 800mg Take 1 tablet by mouth in the morning and 1 tablet at noon and 1 tablet in the evening. Take with meals. Do all this for 30 days. [facility] acetaminoph en-codeine 300-30 mg tablet 2021-03 013 00:00: 00 12-15 00:00 :00 No [id number] 1{tbl} Take 1 tablet by mouth every 6 (six) hours as needed for Pain (scale 4-6) or Pain (scale 7-10) for up to 15 doses. Indication s: acute pain [facility] No known medications 11-20 11:03: 11 No No known medication s [facility] No known medications 11-12 14:06: 34 No No known medication s [facility] Vital Signs Vital Name Observation Time Observation Value Comments S gail Body height 2022-01-01 16:08:00 200.7 cm [facility] Body weight 2022-01-01 16:08:00 148.78 kg [facility] BMI 2022-01-01 16:08:00 36.95 kg/m2 [facility] Systolic blood pressure 2021-12-14 01:00:00 120 mm[Hg] [facility] Diastolic blood pressure 2021-12-14 01:00:00 66 mm[Hg] [facility] Heart rate 2021-12-14 01:00:00 78 /min [facility] Body temperature 2021-12-14 01:00:00 36.39 Cami [facility] Respiratory rate 2021-12-14 01:00:00 18 /min [facility] Oxygen saturation in Arterial blood by Pulse oximetry 2021-12-14 01:00:00 97 /min [facility] Body height 2021-11-20 14:06:00 200.7 cm [facility] Body weight 2021-11-20 14:06:00 150.594 kg [facility] BMI 2021-11-20 14:06:00 37.40 kg/m2 [facility] Body height 2021-11-12 15:55:00 200.7 cm [facility] Body weight 2021-11-12 15:55:00 151.501 kg [facility] BMI 2021-11-12 15:55:00 37.63 kg/m2 [facility] Procedures Procedure Date / Time Performed Performing Clinician Source EXTERNAL PROVIDER RECORDS 2021-12-19 05:01:00 Do ctor Unassigned, [place] [facility] TIME OR (NON-REPORTABLE) 2021-12-13 23:35:00 Elieser Vu [facility] [place] TIME OR (NON-REPORTABLE) 2021-12-13 23:35:00 Elieser Vu [facility] INTUBATION 2021-12-13 22:21:00 Arun Sanchez [facility] TENOLYSIS 2021-12-13 21:12:00 Bird Carnes [facility] NERVE BLOCK 2021-12-13 18:06:53 Antony Cavazos [facility] COVID-19 (ID NOW RAPID TESTING) 2021-12-12 20:07:00 Luis [facility] LAB ONLY COVID INTERPRETATION 2021-12-12 20:07:00 Roman Smith [facility] COVID-19 (ID NOW RAPID TESTING) 2021-12-12 20:07:00 Roman Smith [facility] LAB ONLY COVID INTERPRETATION 2021-12-12 20:07:00 Roman Smith [facility] XR WRIST 3+ VW RIGHT 2021-11-20 14:15:00 Joe Carnes [facility] Encounters Start Date/Time End Date/Time Encounter Type Admission Type Attending Clinicians Care Facility Care Department Encounter ID Source 2023-11-18 08:00:00 2023-11-18 08:00:00 Outpatient LICO CURRY SELE[facility] [id number] [facility] 2022-04-09 08:00:00 2022-04-10 01:42:00 Hospital Encounter Bird Carnes [facility] [id number] [id number] [id number] [id number] [facility] 2022-01-01 08:00:00 2022-01-02 03:57:00 Hospital Encounter Deyvi [facility] [id number] [id number] [id number] [facility] 2022-01-01 10:56:14 2022-01-01 23:59:00 [facility] [id number] [id number] [id number] [id number] [facility] 2022-01-01 16:30:00 2022-01-01 16:45:00 [facility] [id number] 350.1.13.10 4.2.7.2.686 [id number] [facility] 2022-01-01 10:00:00 2022-01-01 12:55:[address] [facility] [id number] 350.1.13.10 4.2.7.2.686 [id number] [facility] 2021-12-19 00:00:00 2021-12-19 00:00:00 Orders Only Doctor Unassigned, [place] [facility] [id number] 350.1.13.10 4.2.7.2.686 [id number] [facility] 2021-12-13 21:52:00 2021-12-15 00:06:00 [facility] [id number] 350.1.13.10 4.2.7.2.686 [id number] [facility] 2021-12-12 08:00:00 2021-12-13 21:51:00 Hospital Encounter [facility] [id number] 350.1.13.10 4.2.7.2.686 [id number] [facility] 2021-12-13 16:27:00 2021-12-13 18:44:00 Anesthesia Event Bianca Nolan, Ajay [facility] [id number] 350.1.13.10 4.2.7.2.686 [id number] [facility] 2021-12-13 13:19:00 2021-12-13 16:14:00 Surgery [facility] [id number] 350.1.13.10 4.2.7.2.686 [id number] [facility] 2021-11-20 08:05:53 2021-11-20 23:59:00 Hospital Encounter [facility] [id number] 350.1.13.10 4.2.7.2.686 [id number] [facility] 2021-11-20 16:30:00 2021-11-20 16:45:00 [facility] 1.2.840.114 350.1.13.10 4.2.7.2.686 [id number] [facility] 2021-11-20 10:00:00 2021-11-20 12:22:04 Office Visit [facility] [id number] 350.1.13.10 4.2.7.2.686 [id number] [facility] 2021-11-12 10:37:27 2021-11-12 23:59:00 Hospital Encounter Keely Dominique [facility] [id number] 350.1.13.10 4.2.7.2.686 [id number] [facility] 2021-11-12 16:30:00 2021-11-12 16:45:00 Ancillary Visit Therapy, Td Simon Capone [facility] 1.2.840.114 350.1.13.10 4.2.7.2.686 [id number] [facility] 2021-11-12 08:00:00 2021-11-12 14:14:46 Office Visit Keely Dominique [facility] [id number] 350.1.13.10 4.2.7.2.686 [id number] [facility] 2021-10-25 00:00:00 2021-10-25 00:00:00 Orders Only Doctor Unassigned, [place] [facility] 1.2.840.114 350.1.13.10 4.2.7.2.686 [id number] [facility] 2021-10-10 08:00:00 2021-10-11 17:50:00 Hospital Encounter Bird Carnes [facility] 1.2.840.114 350.1.13.10 4.2.7.2.686 [id number] [facility] 2021-10-11 10:59:00 2021-10-11 12:27:00 Surgery Deyvi [facility] 1.2.840.114 350.1.13.10 4.2.7.2.686 [id number] [facility] 2021-10-10 00:00:00 2021-10-10 00:00:00 Outpatient [facility] [id number] [facility]
[2024-04-27 11:49] LABS: Absolute Lymphocytes (CBC) 1.4 K/uL (0.7-4.9); Absolute Monocytes 0.6 K/uL (0.1-1.3); Absolute Neutrophil 3.3 K/uL (1.8-8.0); Basophils % 0.6 % (0-1.3); Eosinophils % 0.6 % (0-4.4); Hematocrit 42.3 % (39.6-49.0); Hemoglobin 14.6 g/dL (13.6-17.9); Lymphocytes % 25.4 % (15.3-44.8); MCHC 34.5 g/dL (32.0-36.0); MCV 92.8 fL (80-100); MPV 7.3 fL (7.6-11.3); Monocytes % 11.7 % (3.3-12.3); Neutrophils % 61.7 % (41.7-73.7); Platelets 252 thou/uL (152-406); RBC Red Blood Cell Count 4.55 M/uL (4.33-5.43); Red Cell Distribution Width 14.3 % (12.1-15.2)
[2024-04-27 12:14] LABS: Albumin/Globulin Ratio 0.7 (1.1-1.8); Anion Gap 8.9 mEq/L (5.0-15.0); Bilirubin Total 0.6 mg/dL (0.2-1.0); Globulin 4.3 g/dL (2.3-3.5); Potassium 3.9 mEq/L (3.5-5.1); Protein, Total 7.3 g/dL (6.4-8.2)
[2024-04-27] MEDS ORDERED: NA CHLORIDE 0.9% 1,000 ML ONE (12:54)
[2024-04-27] MEDS ORDERED: ONDANSETRON 4 MG/2 ML VIAL ONE (12:54)
--- NOTE | 2024-04-27 13:48 | RAD REPORT ---
EXAMINATION: CT Abdomen Pelvis W Contrast CLINICAL INDICATION: Male, 48 years old. vomiting/diarrhea;Abd pain TECHNIQUE: CT abdomen and pelvis was performed, after the administration of IV contrast, as per [facility] protocol. Axial, sagittal and coronal reconstructions were obtained. One or more of the following dose reduction techniques were used: Automated exposure control, adjustment of the mA and k V according to patient size, and iterative reconstruction. Unless otherwise specified, incidental findings do not require dedicated imaging follow-up. COMPARISON: 10/04/2023 FINDINGS: LOWER CHEST: The visualized lung bases are clear. LIVER: Mild fatty liver is present. No focal lesion or biliary dilataion is seen. BILIARY SYSTEM: No suspicious abnormalities. SPLEEN: Normal size. No focal lesion. PANCREAS: No mass, ductal dilation, or carlita-pancreatic fluid. ADRENALS: Normal; no mass. KIDNEYS: Normal size and contour. No hydronephrosis. URINARY BLADDER: Unremarkable. GASTROINTESTINAL TRACT: No evidence of free air, significant intra-abdominal free fluid, bowel obstru ction or abscess. APPENDIX: Normal appendix. LYMPH NODES: No lymphadenopathy. MUSCULOSKELETAL: No acute or suspicious osseous abnormality. ADDITIONAL FINDINGS: None. IMPRESSION: No acute or concerning abnormalities seen in the abdomen or pelvis.
--- NOTE | 2024-04-27 13:53 | EDPHYS ---
Physician Documentation [facility] Name: Annabel Casillas Age: 48 yrs Sex: Male : 1975 Arrival Date: 04/27/2024 Time: 11:09 Bed 10 Private MD: ED Physician Tate Carvajal HPI: 04/27 12:37 This 48 yrs old Black Male presents to ER via Ambulatory with complaints of rn Nausea/Vomiting/Diarrhea, Back Pain. 12:37 The patient presents to the emergency department with nausea, vomiting, diarrhea. rn Onset: The symptoms/episode began/occurred 2 day(s) ago. Possible causes: unknown. The symptoms are aggravated by nothing. The symptoms are alleviated by nothing. Severity of symptoms: At their worst the symptoms were moderate in the emergency department the symptoms are unchanged. The patient has not experienced similar symptoms in the past. Patient reports multiple episodes of vomiting and diarrhea, nonbloody, started 2 days ago. Associated with mid back pain. Also has cough and congestion with headache and generalized malaise.. Historical: - Allergies: 11:35 Tylenol-Codeine; iw - Home Meds: 11:34 None [Active]; iw - PMHx: 11:34 None; iw - PSHx: 11:32 right hand surgery; iw - Immunization history:: Adult Immunizations not up to date. - Infectious Disease History:: Denies. - Social history:: Smoking status: Patient reports the use of cigarette tobacco products, Reported history of juuling and/or vaping. - Family history:: not pertinent. - Hospitalizations: : No recent hospitalization is reported. ROS: 12:37 Constitutional: Negative for fever, positive for chills and malaise ENT: Positive for rn congestion Cardiovascular: Negative for chest pain, palpitations, and edema, Respiratory: Positive for cough, negative for shortness of breath or hemoptysis Abdomen/GI: Positive for vomiting and diarrhea, negative for abdominal pain MS/Extremity: Negative for injury and deformity, Neuro: Positive for headache and generalized weakness Exam: 12:37 Constitutional: This is a well developed, well nourished patient who is awake, alert, rn and in no acute distress. ENT: Dry mucous membranes Cardiovascular: Regular rate and rhythm. No pulse deficits. Respiratory: No increased work of breathing, no retractions or nasal flaring. Abdomen/GI: Soft, no focal tenderness. Neuro: Awake and alert, GCS 15 Vital Signs: 11:30 BP 133 / 98; Pulse 93; Resp 18; Temp 97.3; Pulse Ox 99% on R/A; Weight 140.16 kg; iw Height 6 ft. 7 in. ; Pain /; 14:03 BP 127 / 85; Pulse 85; Resp 16; Temp 97.5; Pulse Ox 99% ; bp 11:30 Body Mass Index 34.81 (140.16 kg, 200.66 cm) iw 11:30 Pain Scale: Adult iw MDM: 11:19 Medical Screening Exam initiated rn 13:51 Differential diagnosis: Nonspecific abd pain, gastritis, pancreatitis, appendicitis, rn diverticulitis, viral gastroenteritis, gastroenteritis. Data reviewed: vital signs, nurses notes, lab test result(s), radiologic studies, CT scan, and as a result, I will discharge patient. Counseling: I had a detailed discussion with the patient and/or guardian regarding the historical points, exam findings, and any diagnostic results supporting the discharge/admit diagnosis, lab results, radiology results, the need for outpatient follow up, to return to the emergency department if symptoms worsen or persist or if there are any questions or concerns that arise at home. Response to treatment: the patient's symptoms have markedly improved after treatment, and as a result, I will discharge patient. Special discussion: Based on the patient's Hx, exam, and Dx evaluation, there is no indication for emergent surgery or inpatient Tx. It is understood by the patient/guardian that if the Sx's persist or worsen they need to return immediately for re-evaluation. I discussed with the patient/guardian in detail that at this point there is no indication for admission to the hospital. It is understood, however, that if the symptoms persist or worsen the patient needs to return immediately for re-evaluation. ED course: No acute findings and workup. Most likely viral syndrome. Will discharge home with Zofran as needed and return precautions. Patient states needs to leave as daughter is now getting sick as well. This strengthens the thought that he has a viral syndrome.. 04/27 11:19 Order name: CBC with Diff; Complete Time: 13: rn 04/27 11:19 Order name: CMP; Complete Time: : rn 04/27 11:19 Order name: Lipase; Complete Time: 13: rn 04/27 11:19 Order name: CT Abd/Pelvis - IV Contrast Only; Complete Time: 13:51 rn 04/27 11:19 Order name: IV Saline Lock; Complete Time: 11:46 rn 04/27 11:19 Order name: Labs collected and sent; Complete Time: 11:46 rn Administered Medications: 13:14 Drug: Ondansetron IVP 4 mg IVP once; over 2 minutes Route: IVP; Site: left antecubital; bp 14:05 Follow up: Response: No adverse reaction bp 13:14 Drug: NS 0.9% IV 1000 ml IV at 1 bolus Per protocol; to be given as a bolus over 60 bp minutes Route: IV; Rate: 1 bolus; Site: left antecubital; 14:05 Follow up: IV Status: Completed infusion bp Disposition Summary: 04/27/24 13:52 Discharge Ordered Notes: Location: Home rn Problem: new rn Symptoms: have improved rn Condition: Stable rn Diagnosis - Nausea with vomiting, unspecified rn - Diarrhea, unspecified rn Followup: rn - With: Private Physician - When: As needed - Reason: Recheck today's complaints, Re-evaluation by your physician Discharge Instructions: - Discharge Summary Sheet rn - Diarrhea, Adult rn - Nausea and Vomiting, Adult rn Forms: - Work release form bd - Medication Reconciliation Form rn - 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
--- NOTE | 2024-04-27 13:53 | ER ---
Nurse's Notes [facility] Name: Annabel Casillas Age: 48 yrs Sex: Male : 1975 Arrival Date: 04/27/2024 Time: 11:09 Bed 10 Private MD: Diagnosis: Nausea with vomiting, unspecified;Diarrhea, unspecified Presentation: 04/27 11:30 Chief complaint: Patient states: since Friday has been constantly vomiting, last iw episode was 5 am , now he is having diarrhea , and he has lower back pain and cough. Coronavirus screen: At this time, the client does not indicate any symptoms associated with coronavirus-19. Ebola Screen: No symptoms or risks identified at this time. Initial Sepsis Screen: Does the patient meet any 2 criteria? No. Patient's initial sepsis screen is negative. Does the patient have a suspected source of infection? No. Patient's initial sepsis screen is negative. Risk Assessment: Do you want to hurt yourself or someone else? Patient reports no desire to harm self or others. Onset of symptoms. Onset of symptoms was April 25, 2024. 11:30 Acuity: OMAR 3 iw 11:30 Method Of Arrival: Ambulatory iw Triage Assessment: 12:00 General: Appears in no apparent distress. Behavior is calm, cooperative, appropriate bp for age. Pain: Complains of pain in back. EENT: No deficits noted. Neuro: No deficits noted. Cardiovascular: No deficits noted. Respiratory: No deficits noted. GI: Reports diarrhea, nausea, vomiting. : No signs and/or symptoms were reported regarding the genitourinary system. Derm: No deficits noted. Musculoskeletal: No deficits noted. Historical: - Allergies: 11:35 Tylenol-Codeine; iw - Home Meds: 11:34 None [Active]; iw - PMHx: 11:34 None; iw - PSHx: 11:32 right hand surgery; iw - Immunization history:: Adult Immunizations not up to date. - Infectious Disease History:: Denies. - Social history:: Smoking status: Patient reports the use of cigarette tobacco products, Reported history of juuling and/or vaping. - Family history:: not pertinent. - Hospitalizations: : No recent hospitalization is reported. Screenin:03 [facility] ED Fall Risk Assessment (Adult) History of falling in the last 3 months, bp including since admission No falls in past 3 months (0 pts) Confusion or Disorientation No (0 pts) Intoxicated or Sedated No (0 pts) Impaired Gait No (0 pts) Mobility Assist Device Used No (0 pt) Altered Elimination No (0 pt) Score/Fall Risk Level 0 - 2 = Low Risk Oriented to surroundings. Abuse screen: Denies threats or abuse. Denies injuries from another. Nutritional screening: No deficits noted. Tuberculosis screening: No symptoms or risk factors identified. Assessment: 12:00 General: Appears in no apparent distress. Behavior is calm, cooperative, appropriate bp for age. 14:03 GI: Abdomen is non-distended. bp Vital Signs: 11:30 BP 133 / 98; Pulse 93; Resp 18; Temp 97.3; Pulse Ox 99% on R/A; Weight 140.16 kg; iw Height 6 ft. 7 in. ; Pain 03/12; 14:03 BP 127 / 85; Pulse 85; Resp 16; Temp 97.5; Pulse Ox 99% ; bp 11:30 Body Mass Index 34.81 (140.16 kg, 200.66 cm) iw 11:30 Pain Scale: Adult iw ED Course: 11:14 Patient arrived in ED. al6 11:19 Tate Carvajal MD is Attending Physician. rn 11:32 Triage completed. iw 11:35 Arm band placed on. iw 11:46 CBC with Diff Sent. bc6 11:46 CMP Sent. bc6 11:46 Lipase Sent. bc6 11:46 Initial lab(s) drawn, by wi, sent to lab. Inserted saline lock: 20 gauge in left bc6 antecubital area, using aseptic technique. Blood collected. Flushed with 10 mL NS. 12:38 Simon Parham, RN is Primary Nurse. bp 12:48 CT Abd/Pelvis - IV Contrast Only In Process Unspecified. EDMS 14:03 Patient has correct armband on for positive identification. bp 14:03 No provider procedures requiring assistance completed. IV discontinued, intact, bp bleeding controlled, No redness/swelling at site. Pressure dressing applied. Administered Medications: 13:14 Drug: Ondansetron IVP 4 mg IVP once; over 2 minutes Route: IVP; Site: left antecubital; bp 14:05 Follow up: Response: No adverse reaction bp 13:14 Drug: NS 0.9% IV 1000 ml IV at 1 bolus Per protocol; to be given as a bolus over 60 bp minutes Route: IV; Rate: 1 bolus; Site: left antecubital; 14:05 Follow up: IV Status: Completed infusion bp Medication: 14:03 VIS not applicable for this client. bp Outcome: 13:52 Discharge ordered by . rn 14:03 Discharged to home ambulatory, bp 14:03 Condition: stable 14:03 Discharge instructions given to patient, Instructed on discharge instructions, follow up and referral plans. medication usage, Demonstrated understanding of instructions, follow-up care, medications, Prescriptions given X 1, 14:05 Patient left the ED. bp Signatures: Dispatcher [employer] EDMS Rosalva Johnson RN RN iw Tate Carvajal MD MD rn Peltier, Brian, RN RN bp Teresita Holden 6 Sakshi Pérez6 Corrections: (The following items were deleted from the chart) 11:35 11:30 BP 133 / 98; Pulse 93bpm; Resp 18bpm; Pulse Ox 99% RA; Temp 97.3F; iw iw 11:35 11:32 Allergies: Tylenol; iw iw
[2024-04-27 14:23] VITALS: O2SAT 99
[2024-04-27 14:26] VITALS: BP 127/85; TEMP 97.5
== END 2024-04-27 14:05 | disposition home or self-care (01) ==
LOC: ER 11:09
DX: R11.2 Nausea with vomiting, unspecified (principal); R19.7 Diarrhea, unspecified; M54.9 Dorsalgia, unspecified
CPT/HCPCS: 85025; 36415; 83690; 80053; 74177; Q9967; J2405; J7030